=== PATIENT | female | born 1965 | race Caucasian/White ===

== ENCOUNTER → 2016-06-10 | Outpatient (CLI) | payer OTHER ==
[~2016-06-10] MED LIST: ADVIL200 MG PO; ALDACTONE25 MG PO; CIPRO500 MG PO; CLEOCIN HCL300 MG PO; COLACE100 MG PO; COMPAZINE10 MG; COMPAZINE10 MG PO; DECADRON4 MG PO; DILAUDID 2MG(HYD2 MG PO; FLORASTOR250 MG PO; HALAVEN1 MG/2 ML; HALAVEN1 MG/2 ML IV; IBRANCE125 MG PO; JENTADUETO 2.51 EAC1 PO; KCL - MICRO-K10 MEQ PO; LEVEMIR100 UNIT/1 SUB-Q; MACRODANTIN *IA50 MG PO; MILK OF MA400 MG/5 M PO; MIRALAX17 GM PO; MS CONTIN30 MG PO; NEURONTIN600 MG PO; PERCOCET 5-3251 EACH PO; PRILOSEC20 MG PO; PROAIR HFA8.5 GM INH; SENOKOT8.6 MG PO; TYLENOL325 MG PO; VALIUM10 MG PO; VALIUM5 MG PO; XELODA500 MG PO; XGEVA120 MG/1.7 SUB-Q; ZOFRAN8 MG PO; ZOLOFT50 MG PO
== END | disposition disaster alternative care site (69) ==
LOC: GKIC 11:23
DX: C50.911 Malignant neoplasm of unspecified site of right female breast (principal); C79.51 Secondary malignant neoplasm of bone; R91.8 Other nonspecific abnormal finding of lung field; L03.115 Cellulitis of right lower limb; K59.00 Constipation, unspecified
CPT/HCPCS: A9552

== ENCOUNTER → 2016-07-22 | Outpatient (CLI) | payer OTHER | END | disposition disaster alternative care site (69) | LOC: GRAD 10:23 | DX: R68.84 Jaw pain (principal); C50.911 Malignant neoplasm of unspecified site of right female breast; C79.51 Secondary malignant neoplasm of bone; N91.2 Amenorrhea, unspecified; L03.115 Cellulitis of right lower limb; K59.00 Constipation, unspecified; R22.0 Localized swelling, mass and lump, head ==

== ENCOUNTER 2016-07-23 10:00 | Inpatient (IN) | payer OTHER ==
[~2016-07-23] VITALS: Ht 170.2 cm; Wt 87.9 kg
--- NOTE | ~2016-07-23 | HP ---
PATIENT'S NAME: RITIKA MELENDEZ [facility] AGE: 50 Y [address] ROOM: [place] [address] LOCATION: [facility] [place] ADMIT DATE: 07/23/2016 History & Physical DISCHARGE DATE: FAMILY PHYSICIAN: PHYSICIAN, NO ATTENDING PHYSICIAN: Elizabeth PLEITEZ DATE OF SERVICE: CHIEF COMPLAINT: Parotiditis. HISTORY OF PRESENT ILLNESS: The patient is a 50-year-old female with past medical history of breast cancer, status post radiation, chemo, and mastectomy with metastatic to lung and bone, who presents here from Oncology office with parotiditis. The patient reports that for the past few days she has been noticing her jaw to swell. She reports of chills, but denies fever. She also reports of difficulty swallowing due to pain. She also reports of swelling in her jaw and warmth of her overlying skin around her jaw. The patient also reports of a few day history of lower extremity instability and has had a fall 2 days ago. The patient was seen by her oncologist today and was found to have swollen parotid gland and was admitted here for IV antibiotics and ENT consult. The patient also was found to have low neutrophilic count today. Her ANC is 352 on labs that were drawn today. The patient denies headache, vision change, chest pain, abdominal pain, vomiting, diarrhea, new skin lesions, or bleeding. PAST MEDICAL HISTORY: 1. Breast cancer. 2. 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 Has had radiation of her left choroid eye on 12/26/2015. 3. Hypertension. 4. Diabetes mellitus type 2. 5. Tobacco use. PAST SURGICAL HISTORY: , cholecystectomy, and bilateral mastectomy. FAMILY HISTORY: Dad has a history of esophageal cancer. Sister has a history of breast cancer. SOCIAL HISTORY: The patient has a history of smoking, smoked almost for 30 years. The patient currently is still a smoker. She denies drinking. PATIENT'S NAME: RITIKA MELENDEZ [facility] AGE: 50 Y [address] ROOM: [place] [address] LOCATION: [facility] ADMIT DATE: 07/23/2016 History & Physical DISCHARGE DATE: FAMILY PHYSICIAN: PHYSICIAN, NO ATTENDING PHYSICIAN: Elizabeth PLEITEZ MEDICATIONS: See MAR. REVIEW OF SYSTEMS: All systems have been reviewed and are negative except for what is mentioned in the HPI. PHYSICAL EXAMINATION: VITAL SIGNS: Temperature 98.3, blood pressure 114/61, heart rate 82, and respiratory rate of 20. GENERAL APPEARANCE: The patient is lying comfortably in bed, in mild discomfort due to jaw pain. HEAD: Atraumatic, normocephalic. EYES: Extraocular muscle intact. NOSE: No nasal discharge. MOUTH: Dry oral mucosa. Unable to fully assess oral cavity as the patient has severe pain upon opening of mouth. However, [id number] swelling of mucosa around the parotid glands bilaterally, right greater than left. NECK: No lymph nodes noted. CHEST: Clear to auscultation bilaterally. ABDOMEN: Soft, nontender. Bowel sounds present. HEART: Regular rate and rhythm. No murmurs, rubs, or gallops. SKIN: Warm to touch, however, has decubitus ulcer stage 2 to 3 with eschar formation. MUSCULOSKELETAL: Range of motion intact. No obvious joint effusion. LOWER EXTREMITY: Trace edema. HOME HOSPICE AIDE: The patient is alert and oriented x3. Upper extremity strength 5/5. Lower extremity strength, left side 4/5 and right side 3 to 4/5. LABORATORY DATA: Lab drawn today at Oncology office, sodium of 125, potassium of 3.5, chloride of 88, BUN of 12, creatinine 0.8, and blood glucose of 296. White blood cell count of 1.6, hemoglobin of 6.6, platelet of 44, ANC of 352, and bands of 9. ASSESSMENT AND PLAN: 1. Suppurative parotiditis. The patient is a 50-year-old female with immunocompromised secondary to breast cancer with mets with neutropenia. On physical examination, the patient was noted to have bilateral parotiditis. No fluctuance was appreciated on examination. The patient was given vancomycin and ceftriaxone at Oncology office. We will continue vancomycin; however, we will change ceftriaxone to cefepime 2 mg IV t.i.d. We will also acquire blood culture. ENT will be consulted to further investigate the parotiditis. We will continue pain management. If the patient does not respond well with antibiotics, might benefit from PATIENT'S NAME: PAUL MELENDEZINE Magda [facility] AGE: 50 Y [address] ROOM: [place] [address] LOCATION: [facility] ADMIT DATE: 07/23/2016 History & Physical DISCHARGE DATE: FAMILY PHYSICIAN: PHYSICIAN, NO ATTENDING PHYSICIAN: Elizabeth PLEITEZ surgical evaluation. 2. Neutropenia. The patient has neutropenia secondary to chemo and bone mets. We will treat the patient as neutropenic fever. The patient's ANC level is 352. Neutropenic fever precautions. We will start the patient on cefepime and we will add vancomycin for the possible suppurative parotiditis. 3. Hyponatremia. The patient's sodium is 125. Apparently, last sodium was 135. Etiology secondary to SIADH versus low-salt intake due to poor oral intake secondary to parotiditis. We will acquire urine sodium, urine creatinine, urine osmol, and serum uric acid level. For now, we will hold off with IV fluid until these numbers are back. Also consulted Nephrology. Discussed case with Dr. Cortez. 4. Microcytic anemia. Etiology most likely secondary to mets to bone and chemo. Current hemoglobin 6.6. Type and screen and transfuse 2 units packed red blood cell. 5. Thrombocytopenia. Etiology secondary to bone marrow issues secondary to mets and chemo. No signs of bleeding currently. We will hold blood thinner medication. 6. Hypokalemia, 3.5. We will supplement. 7. Diabetes mellitus type 2. We will continue home regimen of insulin. 8. Breast cancer with mets to eye, bone, and lung. The patient is currently taking Xeloda. To continue Xeloda. This recommendation per oncologist. 9. Pancytopenia. 10. Fall. To acquire MRI brain with and without contrast to further investigate mets to brain. Apparently, the patient has had recent back imaging. To acquire PT and OT when the patient is stable. 11. Chronic pain secondary to mets. To continue home regimen of pain medication. I have personally reviewed the patient's medical record including but not limited to blood work. Total time spent with the patient is greater than 70 minutes, more than 50% of the time spent in direct patient care and patient consultation. Case was reviewed with the patient, nursing staff, Nephrology, and the patient's oncologist. The patient's questions were answered to the patient's satisfaction. The patient's code status on admission is full code. MD LOLY FULLER/susanl /[id number] D: [id number] T: [id number] HISTORY & PHYSICAL
--- NOTE | ~2016-07-23 | CON ---
PATIENT'S NAME: AL [facility] AGE: 50 Y [address] ROOM: [address] [place], [place] [address] LOCATION: [facility] [place] ADMIT DATE: 07/23/2016 Consultation DISCHARGE DATE: FAMILY PHYSICIAN: PHYSICIAN, FRANKLIN ATTENDING PHYSICIAN: Elizabeth PLEITEZ DATE OF CONSULTATION: 07/23/2016 [facility] Nephrology Consultation REASON FOR CONSULTATION: Hyponatremia. HISTORY OF PRESENT ILLNESS: This is a 50-year-old female patient with extensive history of metastatic breast cancer with vertebral, sternal, rib, pelvic, lung, and bone involvement with newly found lung mass in May 2016 with increase in size. The patient presented to Oncology office today and was found to have neutropenia and parotiditis. At that time, the patient's sodium was found to be 125. Baseline sodium appears to be 135 on the last office visit on 07/14/2016. At the time of exam, the patient is in moderate amount of distress secondary to pain. She does report poor oral intake over the last two weeks, nausea, and increased pain management due to progressive metastasis and pain as well as facial pain secondary to parotiditis. Due to the patient's hyponatremia today with a sodium of 125 from 135, one week ago, Dr. Samuel has been asked to consult and manage the patient's hyponatremia while she is hospitalized. PAST MEDICAL HISTORY: 1. As listed above including: Breast cancer with metastasis. 2. Renal calculi. 3. Back pain. 4. Pathologic fractures of the spine. 5. Hypertension. 6. Obesity. 7. Type 2 diabetes. 8. Edema. 9. Anxiety. PAST SURGICAL HISTORY: 1. sections x3. 2. Laparoscopic cholecystectomy. 3. Right breast biopsy. PATIENT'S NAME: BOONE [facility] AGE: 50 Y [address] ROOM: [address] [address] LOCATION: [facility] [place] ADMIT DATE: 07/23/2016 Consultation DISCHARGE DATE: FAMILY PHYSICIAN: PHYSICIAN, FRANKLIN ATTENDING PHYSICIAN: Elizabeth PLEITEZ 4. Right breast lumpectomy x2. 5. Port placement with port removal. 6. Vertebroplasty. 7. Bilateral mastectomy. FAMILY HISTORY: Reviewed and is noncontributory. There is no history of renal disease or dialysis. No electrolyte disorders. The patient's sister did have breast cancer. SOCIAL HISTORY: The patient does live in [place]. She does continue to smoke 3/4 pack of cigarettes per day and has done so for over 25 years. She denies any alcohol or illicit drug use. ALLERGIES: NONE TO MEDICATION. CURRENT HOME MEDICATIONS: Include: 1. MS Contin 30 mg q.12 hours and 60 mg q.12 hours. 2. Neurontin 1200 mg t.i.d. 3. Dilaudid 2 mg p.o. t.i.d. p.r.n. pain. 4. Potassium chloride 10 mEq twice a day. 5. Spironolactone 12.5 mg twice a day p.r.n. fluid retention. 6. Zofran 8 mg p.o. q.8 hours p.r.n. nausea. 7. Tylenol 325 mg p.o. q.6 hours p.r.n. pain. 8. Advil 800 mg p.o. b.i.d. 9. Valium 10 mg p.o. q. day p.r.n. anxiety. 10. Jentadueto 2.5 mg/500 mg 1 tablet daily. 11. Xgeva 120 mg/1.7 mL 1 dose subcutaneously. 12. Ibrance 125 mg p.o. REVIEW OF SYSTEMS: All other systems are negative except as listed above in the HPI. PHYSICAL EXAMINATION: VITAL SIGNS: Blood pressure is 129/72, pulse is 94, respirations 18, and temperature is 97.8. Weight is 81.2 kg. GENERAL: On exam, this is a somnolent white female, who appears older than her stated age. She is in a moderate amount of distress secondary to pain. HEENT. Her head is normocephalic and atraumatic. Alopecia noted. Eyes; EOMs are intact. Nose is midline. Mouth; no gingival bleeding. Throat is without lymphadenopathy or carotid bruits. No JVD noted. RESPIRATORY: Lung sounds are clear to auscultation anteriorly and PATIENT'S NAME: RITIKA MELENDEZ [facility] AGE: 50 Y [address] ROOM: [place] [address] LOCATION: [facility] [place] ADMIT DATE: 07/23/2016 Consultation DISCHARGE DATE: FAMILY PHYSICIAN: PHYSICIAN, NO ATTENDING PHYSICIAN: Elizabeth PLEITEZ. The patient is on room air. CARDIOVASCULAR: Regular rate and rhythm with no appreciable murmurs, rubs, or thrills. ABDOMEN: Obese. Bowel sounds positive. EXTREMITIES: Show trace lower extremity edema bilaterally. LABORATORY DATA AND IMAGING STUDIES: LDH is 453. Hemoglobin A1c is 7.0. INR is 1.16. Uric acid is 7.7, haptoglobin is 117, D-dimer is 2.92, and serum osmolality is 275. Labs obtained from [facility] showed a sodium of 125, potassium 3.5, chloride 88, CO2 of 29, calcium 8.8, albumin is 3.5, AST 28, ALT 21, alkaline phosphatase is 161, glucose is 296, creatinine is 0.8, and BUN is 12. WBCs 1.6, hemoglobin 6.6, hematocrit is 18.2, and platelets are 44,000. A Panorex of the mandible shows no osteolytic or osteoblastic bone lesion identified at the mandible or on panoramic view. There were possible dental caries at the upper right 1st and 2nd molars. Dental evaluation was recommended. MRI of the brain and head with and without contrast is currently pending. ASSESSMENT AND PLAN: 1. Hyponatremia. This is likely multifactorial. The patient has had decreased oral intake as well as nausea and increased pain management over the past few weeks. Dr. Samuel was contacted at the time of the exam, and was notified of the patient's current status. We will obtain a urinalysis for urine osmolality, urine potassium, urine sodium, as well as urine creatinine. The patient's hyponatremia is likely secondary to syndrome of inappropriate secretion of antidiuretic hormone (SIADH) as mentioned above. Dr. Samuel did recommend Samsca versus 3% saline be utilized to help correct the patient's hyponatremia. Further recommendations will be forthcoming with the urinalysis. 2. Neutropenia. Per Dr. Maier. 3. Metastatic breast cancer. Per Dr. Maier. 4. Parotiditis. ENT has been consulted. This patient has been seen and assessed by Dr. Samuel. Her care is being conducted in consultation with Dr. Samuel as well as Karina Alas, BARRY, FOLDER HAND. We will plan further recommendations as they are forthcoming. KARINA ALAS DNP, FOLDER HAND FOR Melia SAMUEL MD PATIENT'S NAME: RITIKA MELENDEZ [facility] AGE: 50 Y [address] ROOM: [place] [address] LOCATION: [facility] [place] ADMIT DATE: 07/23/2016 Consultation DISCHARGE DATE: FAMILY PHYSICIAN: FRANKLIN JO ATTENDING PHYSICIAN: Elizabeth PLEITEZ/delicia /[id number] d: 07/23/16 2336 t: 08/06/16 1001, CONSULTATION REPORT
--- NOTE | ~2016-07-23 | CON ---
PATIENT'S NAME: AL [facility] AGE: 50 Y [address] ROOM: [place] [address] [place] [facility] [place] ADMIT DATE: 07/23/2016 Consultation DISCHARGE DATE: FAMILY PHYSICIAN: PHYSICIAN, FRANKLIN ATTENDING PHYSICIAN: Elizabeth MITCHELL CHIEF COMPLAINT: Bilateral parotitis. HISTORY: The patient is a 50-year-old female with a history of breast cancer. The patient was admitted for bilateral parotitis. Symptoms started one day ago with increased swelling right side than left. The patient has had poor oral intake. She was admitted by Dr. Mitchell and started on IV vancomycin as well as pain control. PAST MEDICAL HISTORY: All documented and reviewed in the chart. SOCIAL HISTORY: All documented and reviewed in the chart. FAMILY HISTORY: All documented and reviewed in the chart. REVIEW OF SYSTEMS: All documented and reviewed in the chart. PHYSICAL EXAMINATION: GENERAL: Ill-appearing 50-year-old female. HEENT: Head is otherwise atraumatic and normocephalic. She shows evidence of bilateral parotitis. Intraoral exam suggest possible yeast infection along the buccal mucosa. The tongue is clear. Floor of mouth is clear. NECK: Without adenopathy or thyromegaly or evidence of submandibular gland involvement. IMPRESSION: Bilateral parotitis. PLAN: For continued IV antibiotic therapy. Increase fluids. Pain control. I would hold off on sialogogues for 48 hours until the glans actually secrete saliva. [facility] AGE: 50 Y [address] ROOM: [place] [id number] [place]: [facility] [place] ADMIT DATE: 07/23/2016 Consultation DISCHARGE DATE: FAMILY PHYSICIAN: PHYSICIAN, FRANKLIN ATTENDING PHYSICIAN: Elizabeth MITCHELL MD DGO/delicia /[id number] d: 07/23/162216 t: 07/26/16 1423, CONSULTATION REPORT
--- NOTE | ~2016-07-23 | DS ---
PATIENT'S NAME: RITIKA MELENDEZ [facility] AGE: 50 Y [address] ROOM: [place] [address] [place] [facility] [place] DATE: 07/23/2016 Discharge Summary DISCHARGE DATE: 07/29/2016 FAMILY PHYSICIAN: PHYSICIAN, FRANKLIN ATTENDING PHYSICIAN: Stephen Johnson DISCHARGING PHYSICIAN: Brandi Shrestha MD. CONSULTING PHYSICIAN: 1. Palliative Care, Ayaka Merritt NP. 2. Alisa Rao APRN for wound ostomy care nurse. ONCOLOGISTS: 1. Surjit Luke MD. 2. Cherelle Faith MD. DISCHARGE DIAGNOSES: 1. Sepsis. 2. Acute bilateral parotitis. 3. Pancytopenia. 4. Electrolyte imbalance. 5. Chronic pain syndrome. 6. Metastatic breast cancer. 7. Acute diarrhea. 8. Leukocytosis. DISCHARGE MEDICATIONS: 1. Neurontin 1200 mg p.o. t.i.d. 2. Hydromorphone 2 mg 1-2 tabs p.o. q.4-6 hours p.r.n. pain. 3. Ibuprofen 800 mg p.o. b.i.d. 4. Morphine sulfate 90 mg p.o. q.12 hours p.r.n. pain. 5. Prilosec 20 mg p.o. daily. 6. Potassium chloride 10 mEq p.o. twice daily. 7. APAP 325 mg p.o. q.6 hours p.r.n. pain. 8. Spironolactone 25 mg p.o. twice daily. 9. Zofran 8 mg p.o. q.6 hours p.r.n. nausea. 10. Xgeva 1 dose subcutaneously q.4 weeks, I believe this was last administered on 07/14/2016. 11. Albuterol 2 puffs INH q.4 hours p.r.n. shortness of breath. 12. Oxycodone/APAP 5/325 one tablet p.o. every 6 hours p.r.n. pain. 13. Eribulin mesylate 2.7 mg IV q.21 day cycle per Oncology. 14. Milk of magnesia 30 mL p.o. daily p.r.n. constipation. 15. Florastor 250 mg p.o. twice daily x10 days, OTC. 16. Colace 100 mg p.o. b.i.d., OTC. 17. MiraLAX 17 g p.o. daily p.r.n., OTC. PATIENT'S NAME: RITIKA MELENDEZ [facility] AGE: 50 Y [address] ROOM: [place] [address] [place] [facility] [place] DATE: 07/23/2016 Discharge Summary DISCHARGE DATE: 07/29/2016 FAMILY PHYSICIAN: PHYSICIAN, NO ATTENDING PHYSICIAN: Stephen Johnson 18. Clindamycin 600 mg p.o. t.i.d. x7 days. PERTINENT RADIOLOGIC DATA: 1. Panorex x-ray on 07/22/2016 showed no osteolytic or osteoblastic lesion identified at the mandible on Panorex view. Possible dental caries in the upper right 1st and 2nd molars. 2. MRI of the brain with and without contrast on 07/23/2016 shows no acute intracranial abnormality. 3. Chest x-ray on 07/25/2016 showed vascular congestion with diffuse interstitial prominence which could reflect interstitial edema or infiltrate, there is a left suprahilar mass, neoplastic bone involvement including expansile sclerotic rib lesion at the right fourth rib. 4. CT of the soft tissue of the neck on 07/29/2016 showed bilateral parotiditis. There was bilateral parotid gland swelling with surrounding induration of fat. No abscess. No evidence of parotid duct stone. PERTINENT LABORATORY DATA: The patient was noted to be pancytopenic upon admission. CBC showed white count 2100, hemoglobin 7.9, hematocrit 22.5, and platelets 42,000. This did continue to recover and on July 26, white count had bumped to 6.7, hemoglobin 8.3, platelets are 46K. The white count continued to escalate on July 27, 2016, it was 12.2; on July 28, was 16.1; on the day of discharge, [place] count [place] [address]. Hemoglobin was 8.4, hematocrit 24.7, and platelets had rebounded to 71K. Differential on the day of discharge showed 31 segs, 30 bands, 8 lymphs, 18 monocytes, and 2 nucleated rbc's. HOSPITAL COURSE: Please refer to the admitting H and P dictated by Dr. Mitchell for more detailed outline of the patient's presentation. The patient was admitted on 07/23/2016 and Oncology was consulted. Her home medications were continued, and the patient was placed on IV clindamycin. Dr. Luke seen the patient in consultation, and an MRI of the brain and head was obtained. The patient was ultimately transfused with 3 total packed RBCs. The patient was ultimately switched to cefixime and vancomycin for antibiotic coverage. The patient did have hyponatremia when admitted with sodium of 134, this drifted up to 136 on the day of discharge. Urine sodium was found to be less than 5 mmol/L, potassium to be 6.0 mmol/L, and urine creatinine 107.0 mg/dL. Spironolactone at that point was held. Wound Care nurse has seen the patient concerning her right sacral ulcer. Aloe Wheelwright was used for management along with Malorie position. The patient did have some electrolyte imbalance, and the patient did have low phosphorus levels of 1.1, this was replaced. Supportive care was continued. It was felt her low sodium was secondary to SIADH. Palliative Care continued to follow along also. The patient did have acute diarrhea from presentation, this was negative for C. Blood cultures were obtained and were negative. The patient continued to have bilateral large tender parotid glands, we continued to be aggressive with IV hydration and/or PATIENT'S NAME: RITIKA MELENDEZ [facility] AGE: 50 Y [address] ROOM: [place] [address] [place] [facility] [place] DATE: 07/23/2016 Discharge Summary DISCHARGE DATE: 07/29/2016 FAMILY PHYSICIAN: PHYSICIAN, FRANKLIN ATTENDING PHYSICIAN: Stephen Johnson IV antibiotics. She was found to be hypokalemic, the lowest being 3.0 for potassium level, this also was replaced, and at the time of discharge, potassium was 4.2. The patient continued to use her home medications and also p.r.n. hydromorphone and Percocet to help manage with her pain. The patient has otherwise improved clinically and her white count continued to climb. The patient was motivated for discharge home and ultimately a CT scan was obtained to rule out the possibility of underlying abscess given the increase in the white count. CT was found to be negative and ultimately the patient was felt stable enough for discharge to her own home. We will continue her on oral clindamycin to continue treatment for her parotitis and she is advised to follow up with Dr. Faith in 1 week to follow up on her elevated white count. The patient is discharged to her own home on 07/29/2016. She is to follow up with Dr. Luke or Dr. Faith in 1 week with a CBC to monitor her count. The patient is being sent home with oral clindamycin 600 mg p.o. t.i.d. for 7 days and was advised to take Florastor for GI prophylaxis. The patient was also sent home on MiraLAX, Colace, and milk of magnesia for help with her constipation which had been chronic before her admission and resurfaced again before discharge. The patient voiced understanding of this plan. This discharge process took greater than 30 minutes and included coordinating followup appointments with the Oncology office and visiting with our colleagues for these arrangements and reviewing medications and followup plans with the patient and reviewing a hospital course. Thank you for allowing us to help care for this patient. KENNY SHAIKH PA-C FOR MD SCOTTY HAIRSTONM/modl /[id number] CC: Cherelle Faith MD d: 07/30/16 0026 t: 08/03/16 1611, DISCHARGE SUMMARY
--- NOTE | ~2016-07-23 | CON ---
PATIENT'S NAME: RITIKA MELENDEZ [facility] AGE: 50 Y [address] ROOM: [place] [address] [place] [facility] [place]: 07/23/2016 Consultation DISCHARGE DATE: FAMILY PHYSICIAN: PHYSICIAN, NO ATTENDING PHYSICIAN: Elizabeth PLEITEZ DATE OF CONSULTATION: 07/24/2016 REFERRING PHYSICIAN: Surjit Luke MD REASON FOR CONSULTATION: Right sacral pressure ulcer with radiation scarring. HISTORY OF PRESENT ILLNESS: This is a 50-year-old female patient who was admitted to [facility] with neutropenic fever. She has a significant history of metastatic breast cancer with bone metastasis. I last saw her at the [facility]patient [facility] on July 17. We have been instructing her to apply [employer] to the site and implement pressure redistribution measures. The patient was admitted from Oncology with parotitis. She reports fevers, chills, and sweats. She denies chest pain. She is very fatigued, pale, and weak. She at first did not want visualization of her buttocks, but did turn over slightly, but had extreme pain so buttocks examination is limited. Really unable to obtain much history as the patient is in pain and appears acutely ill. When I saw her down in the Outpatient Wound Care, she told me that she has had radiation to her spine about 2 years ago and the sacral pressure ulcer started shortly after radiation therapy completed. The patient often sleeps in a recliner at times due to back pain. The patient reports she is nauseated. PAST MEDICAL HISTORY: 1. Breast cancer with metastasis to spine. 2. Renal calculi. 3. Back pain. 4. Pathologic fracture of the spine. 5. Essential hypertension. 6. Obesity. 7. Type 2 diabetes mellitus. 8. Lower leg edema. 9. Anxiety. PAST SURGICAL HISTORY: 1. section x3. 2. Cholecystectomy. 3. Right breast biopsy. PATIENT'S NAME: RITIKA MELENDEZ [facility] AGE: 50 Y [address] ROOM: [place] [address] [place] [facility] [place]: 07/23/2016 Consultation DISCHARGE DATE: FAMILY PHYSICIAN: PHYSICIAN, FRANKLIN ATTENDING PHYSICIAN: Elizabeth PLEITEZ 4. Right breast lumpectomy x2. 5. Port placement with port removal. 6. Vertebroplasty. 7. Bilateral mastectomy. FAMILY HISTORY: Her father had esophageal cancer. SOCIAL HISTORY: She lives with her in [place]. She smokes at least half a pack per day. ALLERGIES: NO KNOWN DRUG ALLERGIES. CURRENT MEDICATIONS: Please refer to the medication administration record. REVIEW OF SYSTEMS: Pertinent positives addressed in the HPI. Limited due to patient's acute illness. PHYSICAL EXAMINATION: VITAL SIGNS: Temperature 98.1, pulse 77, respirations 16, blood pressure 117/64, and pulse oximetry 97% on room air. Height 5 feet 7 inches and weight 81.2 kg. GENERAL: The patient is very pale, diaphoretic, and fatigued. Does open her eyes, but minimal interaction and reports pain with movement. Almost appears disorientated and asking who I am even though she has seen me before. EXTREMITIES: Deferred. HEENT: Minimal hair growth noted to the occipital area. Oral mucosa dry. LUNGS: Respirations shallow. SKIN: Visibly diaphoretic. Limited visualization due to pain with turning & patient not wanting the light on due to eye sensitivity. From what I can tell, right sacral ulcer appears stable since the last time I saw it. The wound is a mixture of moist pink tissue and yellow slough. Skin rolling and blanchable redness to periwound. Was unable to measure as patient needed to turn back to her back. Groin folds intact. LABORATORY DATA: White blood cell count 2.1, hemoglobin 7.9, hematocrit 22.5, and platelets 42,000. Sodium 143, potassium 3.0, chloride 97, bicarbonate 26, BUN 9, creatinine 0.6, glucose 201, albumin 2.3, and phosphorus 1.1. Cortisol 53.8. ASSESSMENT AND PLAN: PATIENT'S NAME: RITIKA MELENDEZ [facility] AGE: 50 Y [address] ROOM: [place] [address] [place] [facility] [place]: 07/23/2016 Consultation DISCHARGE DATE: FAMILY PHYSICIAN: PHYSICIAN, NO ATTENDING PHYSICIAN: Elizabeth PLEITEZ Again, this is a 50-year-old female patient who was admitted to [facility] with neutropenic fever and parotitis. I have been following her in Wound Care for a right sacral stage III pressure ulcer with radiation scarring. 1. Right sacral stage III full-thickness pressure ulcer with radiation scarring present on admission to [facility]. The patient has had this site for over 2 years now. Limited examination due to acuity of illness. We will initiate pressure redistributions and instruct nursing to turn in bed q.2 hours. Dietary consult was ordered. We will continue with [employer] to the site q.i.d. and p.r.n. stooling. We will continue to monitor and will need to reassess when patient is feeling better and measure the site. No induration or fluctuance noted. Heels to be afloated on pillows all times to prevent breakdown. I educated the patient's on the importance of protein intake, but he reports patient is hardly eating. 2. Parotitis. The patient is on antibiotic therapy. 3. Neutropenia and immunosuppression. Neutropenic precautions in place. Discussed proper hand hygiene. Oncology on board. I wish the patient good luck, and I would like to thank Dr. Luke for this consult. JOHN HIGGINS APRN FOR MD JOSE SILVA/delicia /[id number] d: 07/24/16 1210 t: 08/07/16 1042, CONSULTATION REPORT
--- NOTE | ~2016-07-23 | CON ---
[facility] 50 Y [address] ROOM: [place] [address] [place] [facility] [place]: 07/23/2016 Consultation DISCHARGE DATE: FAMILY PHYSICIAN: PHYSICIAN, NO ATTENDING PHYSICIAN: Elizabeth PLEITEZ REFERRING PHYSICIAN: Brandi Shrestha MD LOCATION: [place] [address]. REASON FOR CONSULTATION: This is a palliative care referral for goals of care of the patient and family support. HISTORY OF PRESENT ILLNESS: This 50-year-old frail female was admitted on 07/23/2016 with parotiditis. She has a past medical history of breast cancer status post radiation and chemo and mastectomy. Breast cancer is metastatic to lung and bone. She was admitted from the oncology office with chills, difficulty swallowing, pain in her jaw and cheek. The patient had been declining and falling at home. The patient complains of pain in right jaw and cheek and rates it 10/10, but does arouse easily, is able to ambulate to the bathroom with her walker with assistance. No nausea or vomiting. No hungry or early satiety. Getting weaker and weaker at home. PAST MEDICAL HISTORY: Breast cancer stage IV with metastasis to bone, lung, and choroid of left eye, post radiation to left eye on 12/26/2015, hypertension, diabetes mellitus type 2, and tobaccoism. PAST SURGICAL HISTORY: , cholecystectomy, bilateral mastectomy. FAMILY HISTORY: Father has a history of esophageal cancer. Sister has a history of breast cancer. SOCIAL HISTORY: , lives in [place], had been working for [employer] in [place] along with her , but lately had been getting weaker and was working from home. History of smoking for the past 30 years. Continues to smoke. No drinking or illicit drug use. CURRENT MEDICATIONS: 1. Levofloxacin 750 mg daily. 2. Ibuprofen 800 mg b.i.d. PAT[facility] AGE: 50 Y [address] ROOM: [address] [address] [place] [facility] [place]: 07/23/2016 Consultation DISCHARGE DATE: FAMILY PHYSICIAN: PHYSICIAN, FRANKLIN ATTENDING PHYSICIAN: Elizabeth PLEITEZ 3. Ondansetron 8 mg every 6 hours p.r.n. nausea. 4. Loperamide or Imodium 2 mg p.r.n. diarrhea. 5. Metformin 500 mg daily. 6. Alogliptin 12.5 mg p.o. in a.m. 7. Protonix 40 mg. 8. Fentanyl 25-50 mcg every hour p.r.n. pain. 9. Potassium chloride 10 mEq b.i.d. 10. Nicotine patch 21 mg daily transdermally. 11. Nystatin 5000 units q.i.d. 12. Gabapentin 1200 mg t.i.d. 13. Hydromorphone 2 mg t.i.d. 14. Albuterol 2 puffs every 4 hours p.r.n. inhalation. 15. Hydromorphone 2 mg IV every hour. 16. Oxycodone 1 tab every 6 hours p.r.n. 17. Benadryl 50 mg pre-blood transfusion. 18. [place] chemotherapy, was due for chemotherapy, but did not get it due to decreased blood count. ALLERGIES: TO TEGADERM. NO MED ALLERGIES. REVIEW OF SYSTEMS: A complete review of systems was done and is negative except as mentioned in HPI and listed below. GI: Had been having some nausea. No vomiting. Decreased appetite. Several frequent loose stools. SKIN: Does have a stage III decubitus ulcer on sacrum area, status post radiation. Does complain of pain and tenderness, especially in sitting position. PSYCH: No history of depression. Positive for fatigue and loss of energy. Some confusion with pain medications. PHYSICAL EXAMINATION: GENERAL: This is a 50-year-old, female, well-developed, in some pain distress. VITAL SIGNS: Temp 98.4, pulse 61, respirations 20, BP 137/67, O2 saturation is 98%. HEAD: Normocephalic and atraumatic. Redness noted and slight swelling noted over parotid glands bilaterally greater on right than left. MOUTH: Jewett and dry. LYMPH: No cervical adenopathy or thyromegaly. RESPIRATORY: Clear to auscultation bilaterally. Breath sounds even and regular. CARDIAC: S1, S2 without murmurs or bruits. EXTREMITIES: 2+ pitting edema on lower extremities. PATIENT'S NAME: AL RITIKA Magda [facility] AGE: 50 Y [address] ROOM: [id number] [place], [place] [address] [place] [facility] [place]: 07/23/2016 Consultation DISCHARGE DATE: FAMILY PHYSICIAN: PHYSICIAN, NO ATTENDING PHYSICIAN: Elizabeth PLEITEZ ABDOMEN: Soft, nontender. Positive bowel tones. No hepatosplenomegaly. NEURO: Grossly intact, drowsy but does arouse, answers questions appropriately, but falls asleep easily. MUSCULOSKELETAL: Appropriate range of motion. Walks with walker to the bathroom. SKIN: Stage III decubitus ulcer noted on sacrum, some eschar with erythema noted around it. Right cheek, slight erythema noted with swelling in parotid areas. EXTREMITIES: No cyanosis or deformities. PALLIATIVE PERFORMANCE SCALE: 40% mainly in bed, unable to do most activity, total care, reduced intake, conscious level is drowsy with some confusion. IMPRESSION: Parotid pain, sacrum pain, dysphagia, lack of appetite, anorexia, and diarrhea. PLAN: 1. Met with patient and , discussed chronic condition, metastatic breast cancer with increased pain and recent parotiditis, and pain out of control. The patient and have a fairly good understanding of overall condition. repeated back results of PET scan, disease worsening, increased lesions on last PET scan. They did not know the results of the MRI and was waiting for doctor to tell them about results of the MRI scan. CODE STATUS AND ADVANCED DIRECTIVE: The patient is currently a full code. They have no advanced directive. Did give a copy of our of Advanced directive to . He will try to talk with more when is more clear and not so drowsy and has pain more controlled. Discussed with about disadvantages of coding patient with advanced cancer. RECOMMENDATIONS: Bone pain, the patient had been on gabapentin 1200 mg t.i.d., ibuprofen 800 mg b.i.d., and MS Contin 90 mg b.i.d. The patient had been taking Dilaudid 2 mg IV and fentanyl 25 mcg one dose and 50 mcg x3 doses, but MS Contin was not restarted. Recommendation is to restart MS Contin 90 mg b.i.d. due to patient was able to swallow easily her other medications. Nausea, Zofran was ordered, had one dose and was effective. Diarrhea, Imodium was ordered. We will reassess pain status and code status. Total time was 65 minutes with 55 minutes for counseling and coordination of PATIENT'S NAME: RITIKA MELENDEZ [facility] AGE: 50 Y [address] ROOM: [place] [address] [place] [facility] [place]: 07/23/2016 Consultation DISCHARGE DATE: FAMILY PHYSICIAN: PHYSICIAN, FRANKLIN ATTENDING PHYSICIAN: Elizabeth PLEITEZ. Thank you for allowing me to assist this patient. JANN KERR NP FOR MD BEV MITCHELL/delicia /[id number] d: 07/25/16 1625 t: 08/08/16 0828, CONSULTATION REPORT
[~2016-07-23 10:00] MED LIST changes: -ADVIL200 MG PO; -CIPRO500 MG PO; -CLEOCIN HCL300 MG PO; -COLACE100 MG PO; -COMPAZINE10 MG PO; -DECADRON4 MG PO; -FLORASTOR250 MG PO; -HALAVEN1 MG/2 ML IV; -IBRANCE125 MG PO; -JENTADUETO 2.51 EAC1 PO; -LEVEMIR100 UNIT/1 SUB-Q; -MACRODANTIN *IA50 MG PO; -MILK OF MA400 MG/5 M PO; -MIRALAX17 GM PO; -PERCOCET 5-3251 EACH PO; -PRILOSEC20 MG PO; -PROAIR HFA8.5 GM INH; -SENOKOT8.6 MG PO; -VALIUM10 MG PO; -VALIUM5 MG PO; -XELODA500 MG PO; -XGEVA120 MG/1.7 SUB-Q; -ZOLOFT50 MG PO
--- NOTE | 2016-07-23 12:43 | NUR ---
Pt is 50 y/o female admit for neutropenic fever for hospitalist. Came from office. Allergy to Tegaderm. Red and yellow bracelets on. Hx breast cancer-2010, now has mets to lung and bone,bilat mastectomy,cough,htn,edema to lower legs,DM,anxiety,hx compression fx lumbar,hx cellulitis. Pt weak and drowsy. Family at bedside. In neutropenic precautions.
[2016-07-23 15:41] LABS: INR - (THERAPEUTIC) 1.16 (0.92-1.07); PROTIME 12.2 SECONDS (9.8-11.4)
--- NOTE | 2016-07-23 18:02 | NUR ---
Patient is alert and oriented, but confused at times. 2 person assist with gait belt, stand and pivot. FERMIN accucheck, needs insulin for 1700 BS of 301. Is in MRI currently. Needs UA, missed the hat with this last void, [address] now. Last dose of Dilaudid 2mg IV given at 1624. Will need 2 units of PRBCs, lab called right before she left for MRI saying it was ready. ENT saw, nephrology consulted and saw. Edema bilaterally to the lower extremities. Pressure sore to sacrum, aloe vesta applied, needs to be a Q2 turn. Family in room.
[2016-07-23] MEDS ORDERED: PRILOSEC20 MG PO (19:33)
[2016-07-23] MEDS ORDERED: XELODA500 MG PO (19:35)
[2016-07-23 23:04] LABS: BLOOD URINE 10 /UL (NEGATIVE); COLOR URINE AMBER (YELLOW); GLUCOSE URINE 100 mg/dL (NEGATIVE); KETONE URINE 5 mg/dL (NEGATIVE); LEUKOCYTES URINE 25 /UL (NEGATIVE); NITRITE URINE NEGATIVE (NEGATIVE); PROTEIN URINE 30 mg/dL (NEGATIVE); SPEC GRAVITY URINE 1.015 (1.003-1.035); TURBIDITY URINE CLEAR (CLEAR); UROBILINOGEN URINE 8 mg/dL (NORMAL)
[2016-07-23 23:40] LABS: BACTERIA URINE RARE (NEGATIVE); RBC URINE RARE #/HPF (NEGATIVE)
--- NOTE | 2016-07-24 04:25 | NUR ---
Significant Event: Pt alert and oriented x3, but gets very confused and forgetful on and off. IV left AC and left forarm. IV antibiotics. 2 Units of PRBC infused, premedicated prior to blood with benedryl and tylenol. VSS. RA. denies SOB. Pt nauseated on and off. order for zofran obtained. Diladid 2 MG can be given for pain control helped at times, MD notified. order for fentynal obtained given x1 and diladid given x4. bed alarm on at all times. ACHS accuchecks. pt is very weak with ambulation, 2 assist with walker and gait belt. UA obtained results called to Dr. Cortez. limb alert on right arm. daughter at bedside through out the night Follow up:
[2016-07-24 05:49] LABS: HEMATOCRIT 22.5 % (33.0-46.0); MCV 97.8 fl (83.0-98.0); MPV 11.1 fl (9.4-12.4); WBC 2.1 K/uL (4.0-11.0)
[2016-07-24 05:51] LABS: HEMOGLOBIN 7.9 g/dL (10.0-15.0); MCH 34.3 pg (27.0-34.0); MCHC 35.1 gm/dL (32.0-36.5); PLATELET COUNT 42 K/uL (150-450)
[2016-07-24 06:08] LABS: ALBUMIN 2.3 gm/dL (3.5-5.0); ALK PHOS 119 IU/L (33-138); ALT 11 IU/L (12-78); AST 19 IU/L (10-40); BLOOD UREA NITROGEN 9 mg/dL (6-24); CALCIUM 8.2 mg/dL (8.5-10.5); CHLORIDE 97 mMol/L (96-110); CO2 26 mMol/L (22-32); CREATININE 0.6 mg/dL (0.5-1.1); ESTIMATED GFR (MDRD EQUATION) > 60; SODIUM 134 mMol/L (135-145); TOTAL BILIRUBIN 2.4 mg/dL (0.0-1.5); TOTAL PROTEIN 5.6 g/dL (6.0-8.4)
[2016-07-24 06:33] LABS: ABSOLUTE NEUTROPHIL CT (ANC) 0.7 K/uL (1.8-7.8); BANDED NEUTROPHIL # 0.5 K/uL (0.0-0.1); BANDED NEUTROPHILS % 23 %; LYMPHOCYTE # 0.9 K/uL (0.8-4.0); LYMPHOCYTE % 42 %; MONOCYTE # 0.1 K/uL (0.0-1.0); SEGMENTED NEUTROPHIL # 0.2 K/uL (1.8-7.8); SEGMENTED NEUTROPHIL % 8 %
[2016-07-24] MEDS ORDERED: HALAVEN1 MG/2 ML IV (12:26)
--- NOTE | 2016-07-24 16:45 | NUR ---
ATTEMPTED TO SPEAK TO PATIENT BUT SHE IS SLEEPING AT THIS TIME. WILL TRY TO TALK TO HER AT ANOTHER TIME. I SPOKE TO BRENDA HER PRIMARY NURSE AND SHE REPORTS THAT PATIENT HAS JUST NOW GOT COMFORTABLE AND IS ABLE TO SLEEP.
--- NOTE | 2016-07-24 17:22 | NUR ---
Patient is alert but confused. Lethargic. Up to commode and bathroom multiple times today with diarrhea and urgency of voiding. C.dif was negative. New midline in L) upper currently has potassium infusing. Has received multiple doses of pain medication. Dilaudid PO and IV with last IV at 0947, Fentanyl IV last at 1415, MS contin was given at 1542. She has been resting since the MS contin was given. Jaw is swollen and red bilaterally. Not taking in very much orally. Order received to start NS at 75ml/hr. Will continue to monitor for pain.
[2016-07-25 04:39] LABS: HEMATOCRIT 19.8 % (33.0-46.0); MCV 97.1 fl (83.0-98.0); MPV 10.8 fl (9.4-12.4); RBC 2.04 M/uL (3.50-5.50); RDW-CV 16.1 % (11.9-14.6); WBC 3.8 K/uL (4.0-11.0)
[2016-07-25 04:42] LABS: HEMOGLOBIN 7.1 g/dL (10.0-15.0); MCH 34.8 pg (27.0-34.0); MCHC 35.9 gm/dL (32.0-36.5); PLATELET COUNT 46 K/uL (150-450)
--- NOTE | 2016-07-25 04:44 | NUR ---
Significant Event: Pt drowsy. Oriented to self only. Up with 2 assist, could probably be 1 assist when awake. Bed alarm on at all times with some attempts to get out of bed. Spiked temp of 101.2 tympanically, notified, new orders recieved. Diarrhea x 2 early in the shift. Fentanyl given at 2308 for jaw/neck pain. Face cont to be red and edematous. Ulcer/radiation burn to coccyx open and sore, aloe applied with each BR trip. Last temp 99.8 at 0440. Daily wt 82.9 kg. Follow up:
[2016-07-25 04:50] LABS: ALBUMIN 2.1 gm/dL (3.5-5.0); BLOOD UREA NITROGEN 9 mg/dL (6-24); CALCIUM 7.7 mg/dL (8.5-10.5); CHLORIDE 102 mMol/L (96-110); CO2 23 mMol/L (22-32); CREATININE 0.4 mg/dL (0.5-1.1); ESTIMATED GFR (MDRD EQUATION) > 60; PHOSPHORUS 1.3 mg/dL (2.5-4.9); SODIUM 139 mMol/L (135-145)
[2016-07-25 05:32] LABS: ABSOLUTE NEUTROPHIL CT (ANC) 2.1 K/uL (1.8-7.8); BANDED NEUTROPHIL # 1.5 K/uL (0.0-0.1); BANDED NEUTROPHILS % 40 %; LYMPHOCYTE # 0.7 K/uL (0.8-4.0); LYMPHOCYTE % 19 %; MONOCYTE # 0.3 K/uL (0.0-1.0); SEGMENTED NEUTROPHIL # 0.5 K/uL (1.8-7.8); SEGMENTED NEUTROPHIL % 14 %
[2016-07-25 06:51] LABS: BILIRUBIN URINE NEGATIVE (NEGATIVE); BLOOD URINE NEGATIVE /UL (NEGATIVE); GLUCOSE URINE NEGATIVE (NEGATIVE); KETONE URINE 15 mg/dL (NEGATIVE); LEUKOCYTES URINE NEGATIVE /UL (NEGATIVE); NITRITE URINE NEGATIVE (NEGATIVE); PROTEIN URINE 30 mg/dL (NEGATIVE); UROBILINOGEN URINE NORMAL (NORMAL)
[2016-07-25 07:20] LABS: HEMATOCRIT 20.1 % (33.0-46.0); MCV 97.1 fl (83.0-98.0); MPV 10.7 fl (9.4-12.4); RBC 2.07 M/uL (3.50-5.50); RDW-CV 16.1 % (11.9-14.6); WBC 4.2 K/uL (4.0-11.0)
[2016-07-25 07:22] LABS: HEMOGLOBIN 7.1 g/dL (10.0-15.0); MCH 34.3 pg (27.0-34.0); MCHC 35.3 gm/dL (32.0-36.5)
[2016-07-25 07:22] LABS: COLOR URINE YELLOW (YELLOW); TURBIDITY URINE 3+ (CLEAR)
[2016-07-25 07:24] LABS: AMORPHOUS URINE 3+ (NEGATIVE); BACTERIA URINE FEW (NEGATIVE); EPITHELIAL URINE NEGATIVE #/HPF (NEGATIVE); RBC URINE NEGATIVE #/HPF (NEGATIVE); WBC URINE 0-2 #/HPF (NEGATIVE)
--- NOTE | 2016-07-25 14:20 | NUR ---
Significant Event:patient is more pain and restless in am, MS Contin 60 given at 0720 along with scheduled Dilaudid. K Phos given after K Chloride given, accuchecks 139, 179 at 11-2 units given, more relaxed and comfortable this pm, forgetful at times, up to bathroom often with little to no results stool griffith, Follow up:1 unit of blood after K+ finished infusing, needs Benadryl before unit
[2016-07-25 14:26] LABS: ANION GAP 11.9 (10.0-19.0); BLOOD UREA NITROGEN 10 mg/dL (6-24); CALCIUM 7.3 mg/dL (8.5-10.5); CHLORIDE 107 mMol/L (96-110); CO2 22 mMol/L (22-32); CREATININE 0.5 mg/dL (0.5-1.1); ESTIMATED GFR (MDRD EQUATION) > 60; MAGNESIUM 2.1 mg/dL (1.8-2.6); PHOSPHORUS 1.4 mg/dL (2.5-4.9); POTASSIUM 3.9 mMol/L (3.7-5.1); SODIUM 137 mMol/L (135-145)
[2016-07-26 04:35] LABS: HEMATOCRIT 24.1 % (33.0-46.0); HEMOGLOBIN 8.3 g/dL (10.0-15.0); MCH 33.5 pg (27.0-34.0); MCHC 34.4 gm/dL (32.0-36.5); MCV 97.2 fl (83.0-98.0); RBC 2.48 M/uL (3.50-5.50); RDW-CV 17.2 % (11.9-14.6); WBC 6.7 K/uL (4.0-11.0)
[2016-07-26 04:36] LABS: PLATELET COUNT 46 K/uL (150-450)
[2016-07-26 04:53] LABS: BLOOD UREA NITROGEN 8 mg/dL (6-24); CALCIUM 7.3 mg/dL (8.5-10.5); CHLORIDE 110 mMol/L (96-110); CO2 21 mMol/L (22-32); CREATININE 0.4 mg/dL (0.5-1.1); ESTIMATED GFR (MDRD EQUATION) > 60; PHOSPHORUS 1.1 mg/dL (2.5-4.9); SODIUM 139 mMol/L (135-145)
[2016-07-26 05:34] LABS: BANDED NEUTROPHIL # 1.5 K/uL (0.0-0.1); BANDED NEUTROPHILS % 23 %; LYMPHOCYTE # 0.8 K/uL (0.8-4.0); LYMPHOCYTE % 12 %; MONOCYTE # 1.2 K/uL (0.0-1.0)
[2016-07-26 05:35] LABS: ABSOLUTE NEUTROPHIL CT (ANC) 4.1 K/uL (1.8-7.8); SEGMENTED NEUTROPHIL # 2.6 K/uL (1.8-7.8); SEGMENTED NEUTROPHIL % 38 %
--- NOTE | 2016-07-26 07:10 | NUR ---
Significant Event:pt is a/o x3 but forgetful at times. pt has scheduled ms cotin and dilaudid. pt got dilaudid iv 2mg prn last @0546 for rhonda jaw pain and swelling. pt encouraged to use ice for swelling. pt is a 1 assist w/ walker. pt has several sores to bottom. midline to l upper arm has fluids running. pt did get 1 unit of blood last night. accuchecks ac/hs with bs of 237 and 2 units given. pt hypotensive, sbp in the 90's- low 100's. Follow up:pain control.
--- NOTE | 2016-07-26 19:11 | NUR ---
Significant Event: Patient alert and oriented but forgetful. Vital signs stable, pressures in the low 100s. Facial swelling bilaterally, patient states difficulty chewing. Cold therapy provides some relief. Accuchecks ACHS. Bumex x1. Scheduled MS Dexter motsherine. Dilaudid Q 1hr. Daily weights. Family at bedside. PowerGlide to L) medial upper arm. Ambulated x1 in [place] with family. PT/OT consult. Potassium phosphate x1 IV. Showered in pm. ANC 4.1 remove neutropenic isolation. Follow Up: Saline lock IV. Continue to monitor.
--- NOTE | 2016-07-26 19:19 | NUR ---
I HAVE REVIEWED AND AGREE WITH CHARTING COMPLETED BY [facility] STUDENT EMELY LOVELACE FROM [phone] L[place]ON [place]
[2016-07-27 05:22] LABS: MCV 96.3 fl (83.0-98.0); MPV 10.2 fl (9.4-12.4); RBC 1.61 M/uL (3.50-5.50); RDW-CV 17.8 % (11.9-14.6); WBC 12.2 K/uL (4.0-11.0)
[2016-07-27 05:24] LABS: HEMATOCRIT 15.5 % (33.0-46.0); HEMOGLOBIN 5.4 g/dL (10.0-15.0); MCH 33.5 pg (27.0-34.0); MCHC 34.8 gm/dL (32.0-36.5); PLATELET COUNT 53 K/uL (150-450)
[2016-07-27 05:28] LABS: ALBUMIN 2.1 gm/dL (3.5-5.0); ANION GAP 14.9 (10.0-19.0); BLOOD UREA NITROGEN 7 mg/dL (6-24); CHLORIDE 109 mMol/L (96-110); CO2 19 mMol/L (22-32); CREATININE 0.4 mg/dL (0.5-1.1); ESTIMATED GFR (MDRD EQUATION) > 60; PHOSPHORUS 2.1 mg/dL (2.5-4.9); POTASSIUM 3.9 mMol/L (3.7-5.1); SODIUM 139 mMol/L (135-145)
--- NOTE | 2016-07-27 05:58 | NUR ---
Significant Event:PT IS A/O BUT FORGETFUL. PT IS A 1 ASSIST W/ GAITBELT AND WALKER. PT HAS MIDLINE TO L UPPER ARM AND 20 GAUGE TO L HAND BOTH SL. PT GOT DILAUDID 1 MG @ 1940 AND PERCOCET 1 TAB @ 0431. ACCUCCHECKS AC/HS, BS WAS 137. PT HAD TO BE REDRAWN FOR CBC FOR CONFIRMATION OF HGB OF 5.4. FACIAL SWELLING TO BRIAN SIDES OF FACE. ENCOURAGE ICE PACK. Follow up:
[2016-07-27 06:02] LABS: MCH 33.3 pg (27.0-34.0); MCV 97.3 fl (83.0-98.0); MPV 11.2 fl (9.4-12.4); RBC 2.58 M/uL (3.50-5.50); RDW-CV 18.1 % (11.9-14.6); WBC 12.1 K/uL (4.0-11.0)
[2016-07-27 06:03] LABS: HEMATOCRIT 25.1 % (33.0-46.0); MCHC 34.3 gm/dL (32.0-36.5)
[2016-07-27 06:05] LABS: HEMOGLOBIN 8.6 g/dL (10.0-15.0)
[2016-07-27 06:12] LABS: ABSOLUTE NEUTROPHIL CT (ANC) 8.7 K/uL (1.8-7.8); BANDED NEUTROPHIL # 4.9 K/uL (0.0-0.1); BANDED NEUTROPHILS % 40 %; LYMPHOCYTE # 0.4 K/uL (0.8-4.0); LYMPHOCYTE % 3 %; MONOCYTE # 1.5 K/uL (0.0-1.0); SEGMENTED NEUTROPHIL # 3.8 K/uL (1.8-7.8); SEGMENTED NEUTROPHIL % 31 %
--- NOTE | 2016-07-27 18:57 | NUR ---
Significant Event: PT AO. FORGETFUL AT TIMES. VSS ON RA, AFEBRILE. POWERGLIDE TO AMAYA, SALINE LOCKED. CONTINUES ON IV ABX. SALINE LOCK TO L HAND. ACCURATE I/O. DAILY WT. PT/OT WORKING WITH. AMBULATED IN HALLS WITH 1PA, WALKER. SCHEDULED PAIN MEDS. PRN PERCOCET X1, PRN IVP DILAUDID X1. TOLERATING REGULAR DIET. NO NAUSEA. PRESSURE SORE TO SACRUM. ENCOURAGE REPOSITIONING OFTEN. ALOE VESTA APPLIED. ACHS ACCUCHECKS, NO SSI NEEDED. Follow up: CONTINUE TO MONITOR
--- NOTE | 2016-07-27 18:59 | NUR ---
I HAVE REVIEWED AND AGREE WITH CHARTING COMPLETED BY [facility] STUDENT EMELY LOVELACE FROM [phone] [place]
--- NOTE | 2016-07-28 04:13 | NUR ---
Significant Event:pt is a/o x3 but forgetful. pt is a 1 assist w/ walker and gaitbelt to bathroom, up in halls w/ pt. vss. no prn meds given. accucheck ac/hs bs was 150 no ss insulin given. midline to l upper arm and iv to l hand are sl. plan on being her until thursday or thursday for iv abx. swelling to rhonda sides of face improving. Follow up:
[2016-07-28 04:35] LABS: HEMATOCRIT 24.1 % (33.0-46.0); HEMOGLOBIN 8.3 g/dL (10.0-15.0); MCH 33.6 pg (27.0-34.0); MCHC 34.4 gm/dL (32.0-36.5); MCV 97.6 fl (83.0-98.0); MPV 10.5 fl (9.4-12.4); PLATELET COUNT 62 K/uL (150-450); RBC 2.47 M/uL (3.50-5.50); RDW-CV 17.7 % (11.9-14.6)
[2016-07-28 04:38] LABS: WBC 16.1 K/uL (4.0-11.0)
[2016-07-28 04:50] LABS: ALBUMIN 2.2 gm/dL (3.5-5.0); ANION GAP 13.2 (10.0-19.0); BLOOD UREA NITROGEN 7 mg/dL (6-24); CALCIUM 7.5 mg/dL (8.5-10.5); CHLORIDE 107 mMol/L (96-110); CO2 21 mMol/L (22-32); CREATININE 0.4 mg/dL (0.5-1.1); ESTIMATED GFR (MDRD EQUATION) > 60; POTASSIUM 4.2 mMol/L (3.7-5.1); SODIUM 137 mMol/L (135-145)
[2016-07-28 04:56] LABS: PHOSPHORUS 1.6 mg/dL (2.5-4.9)
[2016-07-28 06:22] LABS: ABSOLUTE NEUTROPHIL CT (ANC) 9.5 K/uL (1.8-7.8); BANDED NEUTROPHIL # 7.2 K/uL (0.0-0.1); BANDED NEUTROPHILS % 45 %; LYMPHOCYTE # 0.5 K/uL (0.8-4.0); LYMPHOCYTE % 3 %; MONOCYTE # 1.3 K/uL (0.0-1.0); SEGMENTED NEUTROPHIL # 2.3 K/uL (1.8-7.8); SEGMENTED NEUTROPHIL % 14 %
--- NOTE | 2016-07-28 16:31 | NUR ---
Patient is alert and oriented. VSS, on room air. Up with stand by assist. Has an order to go outside with her . Midline to the L) upper arm is saline locked but will start potassium phosphate when pharmacy sends. IV to L) hand is saline locked. ACHS accuchecks on mild sliding scale insulin. No coverage given today. Miralax will be given per patient request. Swelling to bilateral jaw/neck has decreased since I had her last on . No draining of parotid glands. Sore to sacrum secondary to radiation. R) arm is a limb alert. Talked to Dr. Luke, he read Dr. Faith' notes and said her shorthand shows that 1 lymphnode removed. The risk of lymphedema is low, he said but just to be on the safe side, keep it a limb alert. Possible discharge tomorrow.
--- NOTE | 2016-07-29 03:09 | NUR ---
Significant Event: Patient alert and oriented X4. UP with stand by assist, walker and gait belt. Vitals stable and on room air. Afebrile this shift. Patinet hoping to go home today. Pt asked if WOC could see her today regarding sacral sore, so WOC consult put in. Sore has been there about 2 years pt stated and if from radiation. Midline to L) upper arm. L) hand IV d/c and was leaking. GOod blood return from midline. Pain meds given around 5. Relief noted. Voiding well. Reposition to L) side often. Refuses R) side. Daily weight. swelling to jaw. C-diff negative. Follow up: Monitor pain
[2016-07-29 05:50] LABS: HEMATOCRIT 24.7 % (33.0-46.0); HEMOGLOBIN 8.4 g/dL (10.0-15.0); MCH 33.7 pg (27.0-34.0); MCV 99.2 fl (83.0-98.0); PLATELET COUNT 71 K/uL (150-450); RBC 2.49 M/uL (3.50-5.50); RDW-CV 17.5 % (11.9-14.6)
[2016-07-29 05:51] LABS: WBC 19.7 K/uL (4.0-11.0)
[2016-07-29 06:06] LABS: ALBUMIN 2.4 gm/dL (3.5-5.0); ANION GAP 13.2 (10.0-19.0); BLOOD UREA NITROGEN 6 mg/dL (6-24); CALCIUM 7.8 mg/dL (8.5-10.5); CHLORIDE 106 mMol/L (96-110); CO2 21 mMol/L (22-32); CREATININE 0.3 mg/dL (0.5-1.1); ESTIMATED GFR (MDRD EQUATION) > 60; PHOSPHORUS 2.3 mg/dL (2.5-4.9); POTASSIUM 4.2 mMol/L (3.7-5.1); SODIUM 136 mMol/L (135-145)
[2016-07-29 08:38] LABS: LYMPHOCYTE # 1.6 K/uL (0.8-4.0); LYMPHOCYTE % 8 %; MONOCYTE # 3.5 K/uL (0.0-1.0); SEGMENTED NEUTROPHIL # 6.1 K/uL (1.8-7.8); SEGMENTED NEUTROPHIL % 31 %
[2016-07-29 08:39] LABS: BANDED NEUTROPHIL # 5.9 K/uL (0.0-0.1); BANDED NEUTROPHILS % 30 %
[2016-07-29] MEDS ORDERED: PERCOCET 5-3251 EACH PO (17:56)
[2016-07-29] MEDS ORDERED: MILK OF MA400 MG/5 M PO (17:57)
[2016-07-29] MEDS ORDERED: FLORASTOR250 MG PO (17:58)
[2016-07-29] MEDS ORDERED: COLACE100 MG PO (17:58)
[2016-07-29] MEDS ORDERED: CLEOCIN HCL300 MG PO (18:00)
--- NOTE | 2016-07-29 18:16 | NUR ---
D: ORDERS RECEIVED FOR THE PATIENT TO BE DISCHARGED TO HOME TODAY WITH HER . I: DISMISSAL INSTRUCTIONS WERE PREPARED AND REVIEWED WITH THE PATIENT AND HER VIRTUALLY. THE FOLLOWING INFORMATION WAS DISCUSSED INCLUDING KRAMES TEACHING SHEETS PROVIDED: UNDERSTANDING SEPSIS, SEPSIS, PERCOCET FLORASTOR, COLACE, MIRALAX, MOM, CLINDAMYCIN AND PREVENTING DVT. REVIEWED ALL NEW MEDICATIONS AND THE OVER THE COUNTER ONES WITH THE PAITENT AND HER . REVIEWED FOLLOW UP APPOINTMENTS MADE WITH DR. ALEXIS, DR. GALO AND WOUND-OSTOMY NURSING HERE AT [facility]. R: THE PATIENT AND HER BOTH VERBALIZED UNDERSTANDING OF THE DISMISSAL EDUCATION AT THE TIME OF TEACHING WITH NO FURTHER QUESTIONS. P: THE ABOVE INFORMATION WAS SHARED WITH THE CHARGE NURSE AND THE PRIMARY NURE THAT THE PATIENT DISMISSAL EDUCATION WAS COMPLETED. THE PATIENT IS READY FOR DISCHARGE TO THE FRONT DOOR VIA WHEEL CHAIR BY NURSING STAFF. THE PATIENT DISCHARGE PAPERS WERE SIGNED AND WITNESSED BY THE VIRTUALLY NURSE. VALERIA SIMON TOOK THE PATIENT'S VITALS AND TRANSPORTED HER BY WHEEL CHAIR TO THE FRONT DOOR WHERE HER IS THERE TO PICK HER UP.
[2016-07-29] MEDS ORDERED: COMPAZINE10 MG PO (18:30)
[2016-07-29] MEDS ORDERED: VALIUM10 MG PO (18:30)
[2016-07-29] MEDS ORDERED: IBRANCE125 MG PO (18:30)
[2016-07-29] MEDS ORDERED: JENTADUETO 2.51 EAC1 PO (18:30)
--- NOTE | 2016-07-29 19:05 | NUR ---
Significant event: Pt was dismissed to home, copies of education, prescriptions and discharge instructions were given to patient. Left upper arm powerglide was removed at 1500 with no complications and coban applied.
[2016-09-18] MEDS ORDERED: XELODA500 MG PO (14:01)
[2016-11-13] MEDS ORDERED: DECADRON4 MG PO (10:03)
[2016-11-13] MEDS ORDERED: COLACE100 MG PO (10:05)
[2016-11-13] MEDS ORDERED: VALIUM5 MG PO (10:05)
[2016-11-13] MEDS ORDERED: LEVEMIR100 UNIT/1 SUB-Q (10:06)
[2016-11-13] MEDS ORDERED: MIRALAX17 GM PO ×2 (10:07→10:14)
[2016-11-13] MEDS ORDERED: SENOKOT8.6 MG PO (10:07)
[2016-11-13] MEDS ORDERED: ADVIL200 MG PO (10:14)
[2016-11-13] MEDS ORDERED: XGEVA120 MG/1.7 SUB-Q (10:14)
[2016-11-13] MEDS ORDERED: PROAIR HFA8.5 GM INH (10:14)
== END 2016-07-29 18:42 | disposition disaster alternative care site (69) | DRG 871 ==
LOC: GMSU 10:00
PROVIDERS: Hospitalist; Internal Medicine; Internal Medicine Hematology & Oncology; Internal Medicine Nephrology; Nurse Practitioner; ADMIT Internal Medicine
DX: A41.2 Sepsis due to unspecified staphylococcus (principal); D61.810 Antineoplastic chemotherapy induced pancytopenia; L89.153 Pressure ulcer of sacral region, stage 3; D84.9 Immunodeficiency, unspecified; E22.2 Syndrome of inappropriate secretion of antidiuretic hormone; C79.51 Secondary malignant neoplasm of bone; Z51.5 Encounter for palliative care; K11.21 Acute sialoadenitis; C50.919 Malignant neoplasm of unspecified site of unspecified female breast; G50.9 Disorder of trigeminal nerve, unspecified; D69.6 Thrombocytopenia, unspecified; E87.6 Hypokalemia; I10 Essential (primary) hypertension; Z90.13 Acquired absence of bilateral breasts and nipples; Z87.442 Personal history of urinary calculi; E11.9 Type 2 diabetes mellitus without complications; G89.4 Chronic pain syndrome; Z72.0 Tobacco use
CPT/HCPCS: C1751; J0692; J1170; J1956; J3010; J3370; J3480; J7030; J7040; J7050; P9040; Q9967

== ENCOUNTER 2016-08-10 15:26 | Inpatient (IN) | payer OTHER ==
[~2016-08-10] VITALS: Ht 170.2 cm; Wt 83.7 kg
--- NOTE | ~2016-08-10 | ER ---
PATIENT'S NAME: RITIKA MELENDEZ [facility] AGE: 50 Y [address] ROOM: [place] [address] LOCATION: GPCU ADMIT DATE: 08/10/2016 ER/Outpatient Report DISCHARGE DATE: FAMILY PHYSICIAN: NELA GALO MD ATTENDING PHYSICIAN: KATE GARAY CHIEF COMPLAINT: Fever and right-sided abdominal pain. HISTORY OF PRESENT ILLNESS: Ms. Melendez is on chemotherapy for primary breast cancer with metastasis. She has been having a fever for the last 2 days. She has had some nausea and vomiting. She has pain with urination and increased burning. It is sometimes difficult to get going. She also has some right-sided upper abdominal pain. She states she has a history of cholecystectomy and appendectomy with 3 C sections. She also has had bilateral mastectomies. She is trying to take some Tylenol for this, but feels much worse than she feels like she should. She was recently hospitalized for some generalized weakness as well. She states that she always has a cough and thinks her cough is perhaps slightly more productive than it has been recently. PAST MEDICAL HISTORY: Documented on the record and reviewed by me. SOCIAL HISTORY: Documented on the record and reviewed by me. MEDICATIONS: Documented on the record and reviewed by me. ALLERGIES: DOCUMENTED ON THE RECORD AND REVIEWED BY ME. REVIEW OF SYSTEMS: All systems were reviewed and negative except as noted in the HPI. PHYSICAL EXAMINATION: VITAL SIGNS: Blood pressure 137/69, pulse 106, respiratory rate is 20, temperature 101.6, and SpO2 is 97% on room air. Pain 6/10. GENERAL: An age-appropriate female, tired, frail appearance, but no obvious pain or distress. NEUROLOGIC: Awake and alert. GCS is 15. HEENT: Normocephalic and atraumatic. Eyes are PERRL. Oropharynx is clear. NECK: Supple. Trachea is midline. PATIENT'S NAME: RITIKA MELENDEZ [facility] AGE: 50 Y [address] ROOM: [address] [address] LOCATION: GPCU ADMIT DATE: 08/10/2016 ER/Outpatient Report DISCHARGE DATE: FAMILY PHYSICIAN: NELA GALO MD ATTENDING PHYSICIAN: KATE GARAY CHEST: Heart is regular rate and rhythm with no murmurs. LUNGS: Clear to auscultation bilaterally. No rhonchi, wheezes, or rales. ABDOMEN: Soft, nontender, and nondistended. Negative Fatima sign. No masses, rebound, or guarding. BACK: Normal to inspection and palpation. RECTAL: The patient has a large 2 x 5 cm gluteal ulcer consistent with pressure ulcer that is full thickness, but appears to be healing. No evidence of cellulitis. EXTREMITIES: Grossly unremarkable except for some edema of the bilateral lower extremities. SKIN: Appears to be grossly intact with no other rashes or breakdown. LABORATORY DATA AND X-RAYS: Chest x-ray with no obvious infiltrates per my review. White count is 1.1 with an absolute neutrophil count of 0.6. Hemoglobin is 6.5, down from 8.4, on the 30th. Platelets are at 58. ESR is greater than 120. INR is 1.08. CMS without electrolyte abnormalities. Glucose of 192, BUN is 12, and creatinine 0.7. GFR is greater than 60. LFTs with an elevation of bilirubin at 2.2. Alkaline phosphatase of 300. AST and ALT are appropriate. Amylase and lipase are appropriate. CK-MB and troponin are not elevated. GGT is 132. CRP is 15.7. Lactate is 1.9. Procalcitonin 0.49. Urinalysis: 500 leukocytes, positive nitrites, 4 urobilinogen, and 150 blood. Micro: Wbc is packed field, rbc 20 to 50, epithelial 0 to 2, and bacteria many. IMPRESSION: 1. Neutropenic fever. 2. Urinary tract infection. 3. Anemia of chronic disease, requiring transfusion. 4. Downtrending blood pressures. 5. Fever. 6. Gluteal pressure ulcer. ED COURSE: The patient was seen and evaluated. She is given fluids and Tylenol. Empiric antibiotics for fever which started with cefepime. The patient continued to feel better despite the fact that her fever did not break. She was given some more fluids. When her CBC came back with anemia, she was consented and typed and screened for 2 units of red blood cells. I discussed the case with Dr. Faith, the patient's oncologist. We will admit her to the hospital for further evaluation and treatment. She will be under the care of Dr. Garay, hospitalist for further evaluation and treatment. PATIENT'S NAME: RITIKA MELENDEZ [facility] AGE: 50 Y [address] ROOM: [place] [address] LOCATION: [facility] ADMIT DATE: 08/10/2016 ER/Outpatient Report DISCHARGE DATE: FAMILY PHYSICIAN: NELA GALO MD ATTENDING PHYSICIAN: KATE GARAY MD NIR WARD/delicia /[id number] d: 08/11/16 1213 t: 08/12/16 1125, OUTPATIENT REPORT
--- NOTE | ~2016-08-10 | DS ---
PATIENT'S NAME: RITIKA MELENDEZ [facility] AGE: 50 Y [address] ROOM: [id number] [place], [place] [address] LOCATION: GPCU ADMIT DATE: 08/10/2016 Discharge Summary DISCHARGE DATE: 08/13/2016 FAMILY PHYSICIAN: Micah Knox MD ATTENDING PHYSICIAN: Isabelle Garay FINAL DIAGNOSES: 1. Severe sepsis, secondary to Enterobacter cloacae complex urinary tract infection. 2. Neutropenic fever. 3. Enterobacter cloacae complex urinary tract infection. 4. Stage IV breast cancer. 5. Chemotherapy-induced pancytopenia. 6. Febrile nonhemolytic transfusion reaction. HISTORY OF PRESENT ILLNESS: In short, the patient was admitted after presenting to the emergency room with fever and was noted to be neutropenic and anemic. She was admitted to PCU. LABORATORY DATA: On admission, sodium 135, discharge 134, potassium on admission was 4.3, discharge 4, BUN on admission was 12, discharge 5, creatinine on admission was 0.7, discharge 0.4, alk phos on admission 300, AST 25, ALT 10, magnesium on admission was 2.2, 2.1 at discharge, amylase and lipase were normal, on admission, cardiac enzymes were normal. C-reactive protein on admission was 15.7. On admit, white blood cell count was 1.1 with an absolute neutrophil count of 600, hemoglobin 6.5, hematocrit 19, platelet count 58, she had 26% bands. On the 2nd hospital day, absolute neutrophil count was a 1000, white blood cell count 1.5, hemoglobin 7.6, most prior to discharge, white blood cell count was 4, hemoglobin 7.7, and platelet count 42,000. Procalcitonin on admission was 0.49, on the 3rd, it was 2.44. Urinalysis on admit was nitrite positive, positive for leukocytes, neutrophils, and packed red blood cells. MICROBIOLOGY DATA: Urine culture was positive for Enterobacter cloacae complex. Blood cultures were negative. X-RAY DATA: Chest x-ray on admission did not show any evidence of a pneumonia. Actually, there is an expansile sclerotic right 4th rib lesion that was noted and there was also a lesion noted in the 8th lateral rib. CT scan of the head without contrast for confusion did not show acute changes. Ultrasound of her abdomen showed that her gallbladder was surgically absent and biliary tree was normal. HOSPITAL COURSE: The patient was admitted to PCU with a neutropenic fever. She was started on cefepime and vancomycin. She was pancultured. She was PATIENT'S NAME: RITIKA MELENDEZ [facility] AGE: 50 Y [address] ROOM: [place] [address] LOCATION: GPCU ADMIT DATE: 08/10/2016 Discharge Summary DISCHARGE DATE: 08/13/2016 FAMILY PHYSICIAN: Micah Knox MD ATTENDING PHYSICIAN: Isabelle Garay placed on the sepsis protocol and received aggressive IV hydration. A blood transfusion was ordered because of her hemoglobin being 6.5 during the night, she did develop a fever and the 2nd unit of blood. The transfusion was stopped and a workup was done for evaluation of a transfusion reaction and in retrospect it came back as a febrile nonhemolytic transfusion reaction. Dr. Maier was asked to see the patient to follow along because of her history of breast cancer. She was on admission is out 4 days from her last chemotherapy. On the , she was initiated on G-CSF to stimulate her bone marrow to produce. On the , she was afebrile, her counts were improved, blood cultures had returned negative; so, the vancomycin was stopped, urine did in fact returned positive for Enterobacter cloacae complex UTI. She was continued on cefepime till her absolute neutrophil count was greater than 1500, which was the day of discharge. It was felt that on the day of discharge, she was afebrile, her total white blood cell count was 4. It was felt that she was stable to be discharged home with oral medications for her UTI. DISCHARGE INSTRUCTIONS: She is discharged on: 1. Neurontin 1200 mg 3 times daily. 2. Prilosec 20 mg daily. 3. Tylenol 325 mg every 6 hours as needed. 4. MS Contin 60 mg every 12 hours p.r.n. pain. 5. Ibuprofen 800 mg twice daily. 6. Dilaudid 2 mg to 4 mg every 4 to 6 hours for pain. 7. Percocet 1 every 6 hours as needed for pain. 8. MS Contin 30 mg q.12 h. p.r.n. 9. Potassium 10 mEq twice daily. 10. Aldactone 25 mg twice a day. 11. Zofran 8 mg every 6 hours as needed for nausea. 12. Xgeva 1 dose subcu every 4 weeks. 13. Albuterol inhaler 2 puffs every 4 hours as needed. 14. Halaven 2.75 mg IV on a 21 day cycle. 15. Milk of mag 30 mL daily as needed for constipation. 16. Colace 100 mg twice daily. 17. MiraLAX 17 g daily as needed for constipation. 18. Cipro 500 mg twice daily for 7 days. The patient did voice understanding of discharge. She is to see Dr. Caron Faith on August 20, at this time, she did share with me that she has concerns that she is concerned about taking chemo the next time because she has felt so poorly both times. PATIENT'S NAME: RITIKA MELENDEZ [facility] AGE: 50 Y [address] ROOM: [address] [address] [facility] ADMIT DATE: 08/10/2016 Discharge Summary DISCHARGE DATE: 08/13/2016 FAMILY PHYSICIAN: Micah Knox MD ATTENDING PHYSICIAN: Isabelle Garay MD LAW/modl /[id number] CC: MD Micah Hernandez MD d: 08/14/16 0244 t: 08/20/16 1044, DISCHARGE SUMMARY
--- NOTE | ~2016-08-10 | HP ---
[facility]GE[facility] 50 Y [address] ROOM: [id number] [place], [place] [address] LOCATION: GPCU ADMIT DATE: 08/10/2016 History & Physical DISCHARGE DATE: FAMILY PHYSICIAN: NELA GALO MD ATTENDING PHYSICIAN: KATE LOJA DATE OF SERVICE: CHIEF COMPLAINT: Neutropenic fever, severe sepsis. HISTORY OF PRESENT ILLNESS: This is a 50-year-old female with a history of breast cancer with mets to the lung and bones and was in active chemo, presents with complaints of fever and generalized weakness. The patient reports that she had been experiencing increasing fatigue since her last chemo 5 days ago, then starting yesterday started spiking again fever at home. The patient checked her temperature yesterday and today and now has a temperature max of 101. The patient also reports frequency of urination and dysuria beginning yesterday as well. The patient also reports increased shortness of breath, dizziness, lightheadedness with ambulation over the last 2 to 3 days as well. Does not report any cough. The patient also reports right-sided abdominal pain, is nonradiating, and it has been going on since yesterday as well. The patient also complains of some nausea, but no vomiting. No diarrhea. No constipation reported. The patient is a patient of Dr. Faith and had her last chemo this past Thursday. PAST MEDICAL HISTORY: Breast cancer with mets to bones, lung, and left eye. She is status post radiation, and she is on chemo currently. History of hypertension, history of type 2 diabetes, tobacco use. FAMILY HISTORY: The patient's father of esophageal cancer and a sister with breast cancer history. SOCIAL HISTORY: The patient has a [id number] history of smoking and still smokes. Denies any drinking alcohol excessively or drug use. REVIEW OF SYSTEMS: All systems have been reviewed and were all negative except as mentioned in the HPI. PHYSICAL EXAMINATION: VITAL SIGNS: Temperature 101.6, blood pressure 137/69, pulse 106, respiratory PATIENT'S NAME: RITIKA MELENDEZ [facility] AGE: 50 Y [address] ROOM: [id number] [place], [place] [address] LOCATION: GPCU ADMIT DATE: 08/10/2016 History & Physical DISCHARGE DATE: FAMILY PHYSICIAN: NELA GALO MD ATTENDING PHYSICIAN: KATE LOJA rate 20, and saturating 97% on room air. GENERAL: The patient is ill and frail appearing, however, resting comfortably. HEENT: Dry mucous membranes. Significant conjunctival pallor noted. SKIN: Without rash or lesions. CHEST: Clear to auscultation bilaterally. ABDOMEN: Soft, nontender, nondistended. Mild discomfort to palpation on the right side of her abdomen. Positive bowel sounds. MUSCULOSKELETAL: No joint swelling, effusion, or redness noted. NEURO: Grossly nonfocal. LABORATORY DATA: ANC of 600. Hemoglobin 6.6. ASSESSMENT AND PLAN: 1. Severe sepsis in the setting of neutropenia. UA with positive nitrite. Culture is pending. We will use cefepime and await on cultures. Continue with aggressive IV fluid resuscitations and supportive care. 2. Anemia, requiring transfusion. Hemoglobin 6.6, and this happened after her chemo 5 days ago. Type and crossing and giving 2 units of packed cells and recheck levels in the morning. 3. Neutropenic fever. This is in relation to the patient's history of cancer and ongoing chemo. Treat sepsis as above, and we will have Dr. Maier follow the patient during hospitalization. Neutropenic precautions to be in still right now. 4. Right upper quadrant pain. The patient also has a mild elevation of her alkaline phosphatase at 300. We will get a right upper quadrant ultrasound to see if there is any concern for ascending cholangitis. 5. Breast cancer with metastasis. The patient is on active chemo. 6. Deep venous thrombosis prophylaxis. The patient's platelets 58 today with a hemoglobin of 6.6. No signs and symptoms of clear blood loss. Hemoglobin corrected appropriately after the 2 units. The patient should be on chemical prophylaxis for deep venous thrombosis prophylaxis as she is at high risk. MD SPRING PEDERSON/susanl /[id number] D: T: 440 HISTORY & PHYSICAL
--- NOTE | ~2016-08-10 | CON ---
PATIENT'S NAME: XENIA MELENDEZ [facility] AGE: 50 Y [address] ROOM: [id number] [place], [place] [address] LOCATION: GPCU ADMIT DATE: 08/10/2016 Consultation DISCHARGE DATE: 08/13/2016 FAMILY PHYSICIAN: Micah Knox MD ATTENDING PHYSICIAN: Isabelle Garay DATE OF CONSULTATION: 08/11/2016 REFERRING PHYSICIAN: Cherelle Faith MD This is a consultation to Dr. Isabelle Garay. HISTORY OF PRESENT ILLNESS: Xenia Melendez is a 50-year-old woman with febrile neutropenia. The history of present illness and past medical history is well documented on the [facility] progress note from 08/06/2016, which is appended to the medical record in Physician's Report and will not be repeated here. The patient is currently on day 13 of her first cycle of eribulin for stage IV breast cancer and is currently on day 2 of cefepime and vancomycin. Since the patient was seen at [facility] on 08/06/2016 she developed fever, nausea, vomiting, dysuria, hesitancy, right-sided pain, leukopenia, neutropenia, and anemia. She has been evaluated closely because she has hyperbilirubinemia and an increased alkaline phosphatase from her metastases to the bone, left choroid and hilar lymph nodes. The patient has developed pyuria, hematuria, and bacteriuria, and was recently hospitalized for parotitis. On 08/06/2016, Mrs. Melendez walked into [facility] with a walker. She felt a bit more unsteady because of her peripheral neuropathy. However, she was capable of self-care. She did water the bernal, washed some dishes and did a little cooking. She felt quite good. She had no problems. On day 8, the patient developed progressive fatigue, and on day 9 and 10, just sat around. On day 11, she vomited and developed right upper quadrant pain and still has it (the patient has had a cholecystectomy). The pain was an ache and did not radiate. She rated at 7-8/10. It was intense enough to disturb her sleep. She did not have this before. The pain resolved after morphine sulfate was given. She also took ibuprofen. She developed rigors which lasted for a long time. She developed night sweats. She vomited again on 2 occasions. She had no hematemesis. She had mild diarrhea. The patient reported to the hospital. She also reported pain in her sacral area from a sacral decubiti. The patient was seen in the emergency room by Dr. Martinez where her temperature was 101.[address] Martinez obtained a white count which was 1100 PATIENT'S NAME: XENIA MELENDEZ [facility] AGE: 50 Y [address] ROOM: [id number] [place], [place] [address] LOCATION: GPCU ADMIT DATE: 08/10/2016 Consultation DISCHARGE DATE: 08/13/2016 FAMILY PHYSICIAN: Micah Knox MD ATTENDING PHYSICIAN: Isabelle Garay with an absolute neutrophil count of 600, hemoglobin was 6.5, and platelets were 58,000. The sedimentation rate was greater than 120. The CMS was remarkable for a glucose of 192 mg/dL, the bilirubin was 2.2 mg/dL, and the alkaline phosphatase was 300 international units/L. The amylase and lipase were normal and the cardiac enzymes were normal. The procalcitonin was 0.49 mg/dL. The urinalysis revealed 500 leukocytes, positive nitrites, a packed white blood cell field and bacteriuria. A chest x-ray compared to 07/25/2016 revealed improvement since the prior study. The expansile sclerotic right 4th rib lesion was again noted. Mediastinal widening was noted. The 8th lateral rib also appeared to be sclerotic consistent with a metastatic focus. A CAT scan of the head without contrast was unremarkable. An ultrasound of the abdomen revealed a surgically absent gallbladder and moderate right hydronephrosis without any clear cause. The spleen was enlarged at 17 cm. The patient was admitted to the hospital, and cefepime and vancomycin were administered. A cooling blanket was applied. The wound ostomy care nurses have been involved. The patient acknowledges she feels considerably better. Mrs. 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 The patient first presented with stage IIB breast cancer in 2010. At that time, she was premenopausal. She underwent a bilateral mastectomy and then received dose dense doxorubicin and cyclophosphamide followed by dose dense paclitaxel in July 2010. Following completion of her chemotherapy tamoxifen was initiated in December,. When the patient developed bony metastases, she was placed on denosumab in March 2014. Fulvestrant was administered for 9 months, then letrozole and palbociclib were initiated in December of 2015 and continued for 6 months. When the patient had progressive disease, capecitabine was substituted on 06/23/2016 and continued for about 2 weeks. Shortly thereafter, the patient was placed on eribulin 07/16/2016 and this is where we currently are. ACTIVE MEDICAL PROBLEMS, CHRONIC AND DIAGNOSED OTHER THAN BREAST CANCER: 1. Hypertension. 2. Type 2 diabetes mellitus. 3. Tobacco use. ACUTE MEDICAL ILLNESSES (RESOLVED), PAST SURGERIES, AND INJURIES: 1. . 2. Cholecystectomy. 3. Bilateral mastectomy. MEDICATIONS: On admission: 1. Ibuprofen. PATIENT'S NAME: XENIA MELENDEZ [facility] AGE: 50 Y [address] ROOM: [id number] [place], [place] [address] LOCATION: GPCU ADMIT DATE: 08/10/2016 Consultation DISCHARGE DATE: 08/13/2016 FAMILY PHYSICIAN: Micah Knox MD ATTENDING PHYSICIAN: Isabelle Garay 2. Ondansetron. 3. Loperamide. 4. Metformin. 5. Alogliptin. 6. Pantoprazole. 7. Fentanyl patch. 8. Potassium chloride. 9. Transdermal nicotine patch. 10. Nystatin. 11. Gabapentin. 12. Hydromorphone. 13. Albuterol. 14. Oxycodone. 15. Diphenhydramine. 16. Eribulin as noted. ADVERSE REACTIONS TO MEDICATIONS: Tegaderm. TRANSFUSIONS: The patient received packed red blood cells in December 2010 and 4 units of packed red blood cells during her recent hospitalization for parotitis and dehydration, and has received 2 units of packed red blood cells here in the hospital. TOBACCO: The patient has smoked for 30 years. SOCIAL HISTORY: The patient lives in [place], [place] with her . She worked for the [employer] in [place], but has been unable to discharge her responsibilities or whatever. Tobacco for 30 years, however, alcohol none. REVIEW OF SYMPTOMS: None others than those noted in the history of the present illness. PHYSICAL EXAMINATION: VITAL SIGNS: Upon admission, pulse 92, blood pressure 100/55, respiratory rate 16, temperature 98.5, height 67 inches, weight 83.4 kg (183 pounds). GENERAL: Well-developed, chronically ill, 50-year-old, female in no acute distress. HEENT: No residual parotid swelling. LYMPH NODES: None palpable. NECK: Without JVD or carotid bruits. CHEST: Decreased breath sounds. Clear. No crackles. PATIENT'S NAME: XENIA MELENDEZ [facility] AGE: 50 Y [address] ROOM: [place] [address] LOCATION: GPCU ADMIT DATE: 08/10/2016 Consultation DISCHARGE DATE: 08/13/2016 FAMILY PHYSICIAN: Micah Knox MD ATTENDING PHYSICIAN: Isabelle Garay CV: Regular. No murmurs, bruits, or adventitious sounds. BREASTS: Status post bilateral mastectomy. ABDOMEN: No masses, tenderness, or megaly. GENITALIA AND RECTAL: Not examined. EXTREMITIES: Without peripheral edema. Sacrum stage III decubitus ulcer present with eschar and erythema. NEURO: The patient can move all 4 extremities. She is appropriate and alert at this time. MICROBIOLOGY DATA: The urine reveals greater than 100,000 Enterobacter cloacae sensitive to cefepime. IMPRESSION: 1. Febrile neutropenia. The pathogen is probably the Enterobacter cloacae. 2. Breast cancer metastatic to the bone and the left choroid. 3. The patient is discouraged. She has been hospitalized on 2 occasions, this one on day 7 of her second cycle of eribulin with neutropenia. 4. As one reviews the CEAs and [id number] in the past, they actually seemed to fall on her short course of capecitabine and she does not recall having serious problems with capecitabine. She has had grade 4 neutropenia, grade 3 thrombocytopenia, and grade 3 anemia with eribulin and fears that consequences of eribulin. She wonders about exploring capecitabine again. RECOMMEND DIAGNOSTIC: Daily CBC with diff. TREATMENT: 1. Cefepime until ANC greater than 1500/mm3. We would then switch to p.o. coverage for total of 10 days of antibiotics as this is a complicated urinary tract infection. 2. The patient will visit with Dr. Faith about her systemic therapy when discharged. CARMINE ADKINS MD GKB/modl /[id number] PATIENT'S NAME: XENIA MELENDEZ [facility] AGE: 50 Y [address] ROOM: [place] [address] [facility] ADMIT DATE: 08/10/2016 Consultation DISCHARGE DATE: 08/13/2016 FAMILY PHYSICIAN: Micah Knox MD ATTENDING PHYSICIAN: Isabelle Garay CC: Shady Baker MD d: 08/16/16 2152 t: 08/17/16 1308, CONSULTATION REPORT
[~2016-08-10 15:26] MED LIST changes: +CLEOCIN HCL300 MG PO; +COLACE100 MG PO; +COMPAZINE10 MG PO; +FLORASTOR250 MG PO; +HALAVEN1 MG/2 ML IV; +IBRANCE125 MG PO; +JENTADUETO 2.51 EAC1 PO; +MILK OF MA400 MG/5 M PO; +PERCOCET 5-3251 EACH PO; +PRILOSEC20 MG PO; +VALIUM10 MG PO; +XELODA500 MG PO
[2016-08-10 16:10] LABS: BLOOD URINE 150 /UL (NEGATIVE); COLOR URINE AMBER (YELLOW); GLUCOSE URINE NEGATIVE (NEGATIVE); KETONE URINE NEGATIVE (NEGATIVE); LEUKOCYTES URINE 500 /UL (NEGATIVE); NITRITE URINE POSITIVE (NEGATIVE); PROTEIN URINE 100 mg/dL (NEGATIVE); TURBIDITY URINE 3+ (CLEAR); UROBILINOGEN URINE 4 mg/dL (NORMAL)
[2016-08-10 16:18] LABS: WBC URINE PACKED FIELD #/HPF (NEGATIVE)
[2016-08-10 16:19] LABS: BACTERIA URINE MANY (NEGATIVE); EPITHELIAL URINE 0-2 #/HPF (NEGATIVE); RBC URINE 20-50 #/HPF (NEGATIVE)
[2016-08-10 16:27] LABS: MCV 97.4 fl (83.0-98.0); MPV 10.4 fl (9.4-12.4); RBC 1.95 M/uL (3.50-5.50); RDW-CV 16.3 % (11.9-14.6)
[2016-08-10 16:28] LABS: HEMOGLOBIN 6.5 g/dL (10.0-15.0); MCH 33.3 pg (27.0-34.0); MCHC 34.2 gm/dL (32.0-36.5); WBC 1.1 K/uL (4.0-11.0)
[2016-08-10 16:29] LABS: PLATELET COUNT 58 K/uL (150-450)
[2016-08-10 16:39] LABS: INR - (THERAPEUTIC) 1.08 (0.92-1.07); PROTIME 11.3 SECONDS (9.8-11.4); PTT 25 SECONDS (25-32)
[2016-08-10 16:43] LABS: ALBUMIN 3.1 gm/dL (3.5-5.0); ALK PHOS 300 IU/L (33-138); ALT 10 IU/L (12-78); ANION GAP 12.3 (10.0-19.0); AST 25 IU/L (10-40); BLOOD UREA NITROGEN 12 mg/dL (6-24); CALCIUM 7.6 mg/dL (8.5-10.5); CHLORIDE 102 mMol/L (96-110); CO2 25 mMol/L (22-32); CREATININE 0.7 mg/dL (0.5-1.1); ESTIMATED GFR (MDRD EQUATION) > 60; POTASSIUM 4.3 mMol/L (3.7-5.1); SODIUM 135 mMol/L (135-145); TOTAL BILIRUBIN 2.2 mg/dL (0.0-1.5); TOTAL PROTEIN 5.8 g/dL (6.0-8.4)
[2016-08-10 17:11] LABS: ABSOLUTE NEUTROPHIL CT (ANC) 0.6 K/uL (1.8-7.8); BANDED NEUTROPHIL # 0.3 K/uL (0.0-0.1); LYMPHOCYTE # 0.3 K/uL (0.8-4.0); LYMPHOCYTE % 24 %; MONOCYTE # 0.1 K/uL (0.0-1.0); SEGMENTED NEUTROPHIL # 0.3 K/uL (1.8-7.8); SEGMENTED NEUTROPHIL % 29 %
[2016-08-10 17:12] LABS: BANDED NEUTROPHILS % 26 %
--- NOTE | 2016-08-11 02:44 | NUR ---
2230-second iv started attempted x2,blood paused at this time. blood restarted, pt noted to have large dark yellow emesis at 2300, pt alert and oriented at this time, up to bsc with 2 assist, pt began to have increased confusion at this time. temp check and up to 100.5 from 100.3, pt returned to bed and continues to become more confused,disoriented to time, place. charge to room at 2310,2315 to room to assess patient, blood paused at this point also. temp 101.3 at 2340 ice packs applied, consulted oncology - and also spoke to blood bank at this time. states that she got blood in june and did not have a reaction and states that he does not think this temp is from the blood rather the sepsis. spoke with blood bank after speaking to oncology, and explained situation of pt increased temps during blood transfusion however does have sepsis as well. based on consultation with oncology and blood bank, blood was restarted. at this point of restarting the blood approx 160ml had been given. blood restarted per orders. Dr. luz also gave January Mehta order to given 650mg of tylenol and 50mg of benadryl and continue blood transfusion. this was given at 2350 and blood continued. pt temp continued to decrease from 103. at completion of blood transfusion temp was 101. blood finished at 0028. vitals temp 101.0 orally, pulse 97, blood pressure 124/62.pt continues to have periods of confusion however is aware of self and place. atibiotic started at completion of blood due to one peripheal line and unable to start another iv. also ordered vanco to be given before next unit of blood which is hung following the first antibiotic.0130 pt to ctscan per orders of to have ct once temp stabalized. temp down to 99.2 at time of transfer to ct. pt returns from ct and temp continues to be stable.
[2016-08-11 03:41] LABS: HEMATOCRIT 21.8 % (33.0-46.0); MCV 93.6 fl (83.0-98.0); MPV 9.8 fl (9.4-12.4); RBC 2.33 M/uL (3.50-5.50); RDW-CV 17.3 % (11.9-14.6)
[2016-08-11 03:42] LABS: HEMOGLOBIN 7.6 g/dL (10.0-15.0); MCH 32.6 pg (27.0-34.0); MCHC 34.9 gm/dL (32.0-36.5); PLATELET COUNT 38 K/uL (150-450); WBC 1.5 K/uL (4.0-11.0)
--- NOTE | 2016-08-11 03:45 | NUR ---
0235, nargis completed and orders sent to lab for 2nd unit of blood. 0240 lab calls stating due to the increased temp we need to do a reaction workup. nurse explains that consulted oncology and blood bank and they are agree this is not a reaction from the blood however her sepsis. lab states we cannot get another unit of blood untill we do the workup becuase she was not aware the reaction was when the blood was running. Nurse spoke with reaction work up will be completed at this time.
[2016-08-11 03:56] LABS: ALBUMIN 2.5 gm/dL (3.5-5.0); ANION GAP 10.7 (10.0-19.0); BLOOD UREA NITROGEN 13 mg/dL (6-24); CHLORIDE 107 mMol/L (96-110); CO2 22 mMol/L (22-32); CREATININE 0.6 mg/dL (0.5-1.1); ESTIMATED GFR (MDRD EQUATION) > 60; MAGNESIUM 2.2 mg/dL (1.8-2.6); POTASSIUM 3.7 mMol/L (3.7-5.1); SODIUM 136 mMol/L (135-145)
[2016-08-11 03:59] LABS: CALCIUM 7.2 mg/dL (8.5-10.5); PHOSPHORUS 1.1 mg/dL (2.5-4.9)
--- NOTE | 2016-08-11 05:28 | NUR ---
Significant Event:Pt has rested well and vss since 033. afebrile at this time. prn tylenol 650mg given po as well as diluadid at this time. 2 unit of blood started at 0515, will have cbc 1 hour after second unit. hgb after first unit of blood was 7.6. wbc 1.5. pt is on neutropenic precautions. iv to left ac. were unable to get 2 iv started so will have picc consult today.pt up with 1-2 assist bedside commode. had 1 very large void. and 2 large bms this shift. continues to be on room air. lung sound clear, bowel sounds active x4. gereralized edema noted. 1-2+, lower exremites 2-3+edema noted. faced flused at times. alarms in place. did have period of confusion with increased temp is now at baseline of alert and oriented x4. Follow up:
[2016-08-11 06:25] LABS: BANDED NEUTROPHIL # 0.1 K/uL (0.0-0.1); BANDED NEUTROPHILS % 4 %; LYMPHOCYTE # 0.4 K/uL (0.8-4.0); LYMPHOCYTE % 25 %; MONOCYTE # 0.2 K/uL (0.0-1.0); SEGMENTED NEUTROPHIL # 0.9 K/uL (1.8-7.8); SEGMENTED NEUTROPHIL % 60 %
[2016-08-11 10:38] LABS: HEMATOCRIT 22.4 % (33.0-46.0); MCV 91.8 fl (83.0-98.0); MPV 9.6 fl (9.4-12.4); RBC 2.44 M/uL (3.50-5.50); RDW-CV 16.9 % (11.9-14.6)
[2016-08-11 11:18] LABS: WBC 1.2 K/uL (4.0-11.0)
[2016-08-11 11:19] LABS: HEMOGLOBIN 7.9 g/dL (10.0-15.0); MCH 32.4 pg (27.0-34.0); MCHC 35.3 gm/dL (32.0-36.5); PLATELET COUNT 39 K/uL (150-450)
[2016-08-11 11:45] LABS: ABSOLUTE NEUTROPHIL CT (ANC) 0.4 K/uL (1.8-7.8); BANDED NEUTROPHIL # 0.2 K/uL (0.0-0.1); BANDED NEUTROPHILS % 13 %; LYMPHOCYTE # 0.5 K/uL (0.8-4.0); LYMPHOCYTE % 40 %; MONOCYTE # 0.2 K/uL (0.0-1.0); SEGMENTED NEUTROPHIL # 0.3 K/uL (1.8-7.8); SEGMENTED NEUTROPHIL % 21 %
--- NOTE | 2016-08-11 16:24 | NUR ---
PICC placement ordered. Blood cultures pending at this time. Pt evaluated for possible midline IV, deferred at this time d/t only one arm to work with d/t hx of mastectomy and plan for PICC if blood cultures neg. 20g PIV placed to L) hand, flushes well and has good blood return.
--- NOTE | 2016-08-11 18:55 | NUR ---
Significant Event: VSS AND RA. AFEBRILE. PO DILAUDID AND MS CONTIN X1 EACH WITH GOOD PAIN CONTROL. 2ND UNIT PRBC'S TRANSFUSED WITHOUT DIFFICULTY. IV ABX CONTINUE. WILL HAVE A PICC LINE PLACED EITHER TOMORROW AFTERNOON OR THURSDAY PENDING BC RESULTS; ANOTHER PIV PLACED TO LT)HAND BY [address] WAY THIS AFTERNOON. UP TO BSC WITH GOOD UOP. WOC FOLLOWING REGARDING OPEN WOUND TO RT)BUTTOCK; ALOE APPLIED PER ORDER AND KEPT OFF OF THAT SIDE WITH WEDGE. Follow up: CONTINUE PLAN OF CARE.
--- NOTE | 2016-08-12 04:48 | NUR ---
Alert and oriented. Cooperative and appreciative. VSS. Afebrile this shift. Neutropenic precautions. 1 assist with gait belt and walker. PICC line to be placed either this afternoon or Thursday- when BC clear. Currently peripherals in left hand and left AC. Open sore on right buttock- aloe vesta cream. Uses wedge to keep off that area. Maxipine and vanco. Vanco trough today. Continue plan of care, discharge when appropriate.
[2016-08-12 05:54] LABS: MCV 92.8 fl (83.0-98.0); MPV 10.9 fl (9.4-12.4); RBC 2.37 M/uL (3.50-5.50); RDW-CV 17.4 % (11.9-14.6)
[2016-08-12 05:58] LABS: HEMOGLOBIN 7.6 g/dL (10.0-15.0); MCH 32.1 pg (27.0-34.0); MCHC 34.5 gm/dL (32.0-36.5); PLATELET COUNT 39 K/uL (150-450); WBC 1.4 K/uL (4.0-11.0)
[2016-08-12 06:08] LABS: ALBUMIN 2.2 gm/dL (3.5-5.0); ANION GAP 11.5 (10.0-19.0); BLOOD UREA NITROGEN 9 mg/dL (6-24); CHLORIDE 108 mMol/L (96-110); CO2 21 mMol/L (22-32); CREATININE 0.4 mg/dL (0.5-1.1); ESTIMATED GFR (MDRD EQUATION) > 60; MAGNESIUM 2.1 mg/dL (1.8-2.6); POTASSIUM 3.5 mMol/L (3.7-5.1); SODIUM 137 mMol/L (135-145)
[2016-08-12 06:21] LABS: ABSOLUTE NEUTROPHIL CT (ANC) 0.7 K/uL (1.8-7.8); BANDED NEUTROPHIL # 0.6 K/uL (0.0-0.1); BANDED NEUTROPHILS % 40 %; LYMPHOCYTE # 0.3 K/uL (0.8-4.0); LYMPHOCYTE % 24 %; MONOCYTE # 0.3 K/uL (0.0-1.0); SEGMENTED NEUTROPHIL # 0.2 K/uL (1.8-7.8); SEGMENTED NEUTROPHIL % 12 %
[2016-08-12 06:26] LABS: CALCIUM 6.9 mg/dL (8.5-10.5)
--- NOTE | 2016-08-12 17:23 | NUR ---
Significant Event: Patient A/O X3. VSS. BP's 100's HR 80-70's. Afebrile. C/O generalized plain this am and left leg pain in the pm. Dilaudid x 2 last one at 1515. Patient working with PT/OT. Ambulating in room and hallway. Out in hallway with wheelchair and mask on. Small BM this am. Decreased appetitie no nausea this shift Follow up: Continue per plan of care. Encourage appetite.
--- NOTE | 2016-08-13 05:54 | NUR ---
A/O. HR 60-70s. SBP 100-110s. ROOM AIR. AFEBRILE. SEE MAR FOR PAIN MEDS GIVEN. SBP UP TO BATHROOM. NO BM. POSSIBLE PICC PLACEMENT TODAY. NEUTROPENIC PRECAUTIONS.
[2016-08-13 06:37] LABS: HEMATOCRIT 22.6 % (33.0-46.0); MCV 94.2 fl (83.0-98.0); MPV 10.7 fl (9.4-12.4); RDW-CV 16.9 % (11.9-14.6)
[2016-08-13 06:44] LABS: HEMOGLOBIN 7.7 g/dL (10.0-15.0); MCH 32.1 pg (27.0-34.0); MCHC 34.1 gm/dL (32.0-36.5); PLATELET COUNT 42 K/uL (150-450)
[2016-08-13 06:48] LABS: ALBUMIN 2.3 gm/dL (3.5-5.0); BLOOD UREA NITROGEN 5 mg/dL (6-24); CALCIUM 7.7 mg/dL (8.5-10.5); CHLORIDE 106 mMol/L (96-110); CO2 21 mMol/L (22-32); CREATININE 0.4 mg/dL (0.5-1.1); ESTIMATED GFR (MDRD EQUATION) > 60; MAGNESIUM 2.1 mg/dL (1.8-2.6); SODIUM 134 mMol/L (135-145)
[2016-08-13 06:49] LABS: PHOSPHORUS 1.1 mg/dL (2.5-4.9)
[2016-08-13 07:16] LABS: ABSOLUTE NEUTROPHIL CT (ANC) 2.9 K/uL (1.8-7.8); BANDED NEUTROPHIL # 2.6 K/uL (0.0-0.1); BANDED NEUTROPHILS % 66 %; LYMPHOCYTE # 0.6 K/uL (0.8-4.0); LYMPHOCYTE % 16 %; MONOCYTE # 0.4 K/uL (0.0-1.0); SEGMENTED NEUTROPHIL # 0.3 K/uL (1.8-7.8); SEGMENTED NEUTROPHIL % 7 %
[2016-08-13] MEDS ORDERED: CIPRO500 MG PO (14:59)
--- NOTE | 2016-08-13 16:11 | NUR ---
Patient dismissed to home with . Patient and spouse deny question or concern of discharge. VSS on RA. IV's dc'd. Rx provided. F/u appointments explained
--- NOTE | 2016-08-15 12:13 | NUR ---
Post discharge follow up call. Patient doing well. Is aware of follow up appointments with primary care and oncologist. Had one episode of nausea and vomiting this morning after breakfast. Talked about eating small amounts of bland food for lunch. Is taking fluids well. Very complimentary of the care she received while hospitalized.
[2016-09-18] MEDS ORDERED: XELODA500 MG PO (14:01)
[2016-11-13] MEDS ORDERED: DECADRON4 MG PO (10:03)
[2016-11-13] MEDS ORDERED: VALIUM5 MG PO (10:05)
[2016-11-13] MEDS ORDERED: COLACE100 MG PO (10:05)
[2016-11-13] MEDS ORDERED: LEVEMIR100 UNIT/1 SUB-Q (10:06)
[2016-11-13] MEDS ORDERED: MIRALAX17 GM PO ×2 (10:07→10:14)
[2016-11-13] MEDS ORDERED: SENOKOT8.6 MG PO (10:07)
[2016-11-13] MEDS ORDERED: XGEVA120 MG/1.7 SUB-Q (10:14)
[2016-11-13] MEDS ORDERED: ADVIL200 MG PO (10:14)
[2016-11-13] MEDS ORDERED: PROAIR HFA8.5 GM INH (10:14)
== END 2016-08-13 15:30 | disposition disaster alternative care site (69) | DRG 871 ==
LOC: GMED 15:26 → GPCU 18:56
PROVIDERS: Emergency Medicine; Internal Medicine; ADMIT Internal Medicine
DX: A41.9 Sepsis, unspecified organism (principal); L89.93 Pressure ulcer of unspecified site, stage 3; D61.810 Antineoplastic chemotherapy induced pancytopenia; C79.49 Secondary malignant neoplasm of other parts of nervous system; D64.9 Anemia, unspecified; N39.0 Urinary tract infection, site not specified; I10 Essential (primary) hypertension; E11.9 Type 2 diabetes mellitus without complications; K21.9 Gastro-esophageal reflux disease without esophagitis; R50.81 Fever presenting with conditions classified elsewhere; R65.20 Severe sepsis without septic shock; R50.84 Febrile nonhemolytic transfusion reaction; Z87.891 Personal history of nicotine dependence; Z92.21 Personal history of antineoplastic chemotherapy; Z90.13 Acquired absence of bilateral breasts and nipples; Z85.3 Personal history of malignant neoplasm of breast; Z85.830 Personal history of malignant neoplasm of bone; Z85.118 Personal history of other malignant neoplasm of bronchus and lung; B96.89 Other specified bacterial agents as the cause of diseases classified elsewhere
CPT/HCPCS: J0692; J1447; J2405; J3370; J7030; J7040; J7050; P9040

== ENCOUNTER 2016-10-26 18:42 | Inpatient (IN) | payer OTHER ==
[~2016-10-26] VITALS: Ht 170.2 cm; Wt 75.4 kg
--- NOTE | ~2016-10-26 | DS ---
PATIENT'S NAME: RITIKA MELENDEZ [facility] [place] AGE: 50 Y [address] ROOM: [id number] [place], [place] [id number] LOCATION: GPCU ADMIT DATE: 10/26/2016 Discharge Summary DISCHARGE DATE: 10/31/2016 FAMILY PHYSICIAN: PHYSICIAN, NO ATTENDING PHYSICIAN: Anita Foreman DISCHARGE DIAGNOSES: 1. E. coli sepsis, secondary to urinary tract infection. 2. Stage IV breast cancer. 3. Hypertension. 4. Diabetes type 2. 5. Pancytopenia, secondary to chemotherapy. REASON FOR ADMISSION: The patient was febrile and severely ill with delirium. LABORATORY DATA: Accu-Cheks have been in the 100s for the most part, well- controlled. Chemistries have shown a sodium slightly low in the 132 to 134 range, it is currently at 134, potassium 4.1, calcium and albumin were both low. Liver function tests were all normal. LDH elevated at 453, pro-BNP was up at 815. Hemoglobin A1c was 7, that was on July 23, 2016. TSH was normal on July 23. Hematology: White count now up to 4.7, which is normal, hemoglobin is 9, platelets up to 58, which is the best they have been, been progressively better throughout the hospitalization, procalcitonin October 26 was 31.05. Urinalysis showed a packed field of wbcs with 50 to 100 red cells and many bacteria. Cultures grew out E. coli, sensitive to pretty much everything. She will go home on Cipro for another 10 days orally. Blood cultures were also positive for the E. coli. Chest x-ray on 10/30/2016 showed no evidence of acute cardiopulmonary disease. It did show the right rib mets. HOSPITAL COURSE: Hospital course was one of gradual, but sort of up and down improvement. The overall trend was positive and she looks good today. PHYSICAL EXAMINATION: CHEST: Clear. HEART: Regular rate and rhythm without murmur. ABDOMEN: Belly is soft, nontender. PSYCH: She is alert and oriented with no signs of delirium. DISCHARGE INSTRUCTIONS: She will be sent home on meds per nursing med recon form and diet and activity will be ad elver. Follow up with Dr. Rubens Maier will be per Dr. Maier for her next chemo. Discharge took less than 30 minutes. ASIA LIRA MD PATIENT'S NAME: RITIKA MELENDEZ [facility] [place] AGE: 50 Y [address] ROOM: [place] [id number] LOC[facility] ADMIT DATE: 10/26/2016 Discharge Summary DISCHARGE DATE: 10/31/2016 FAMILY PHYSICIAN: FRANKLIN JO ATTENDING PHYSICIAN: Anita Foreman/susanl /[id number] d: 11/01/16 06 t: 11/02/16 1721, DISCHARGE SUMMARY
--- NOTE | ~2016-10-26 | ER ---
PATIENT'S NAME: PAUL MELENDEZINE Magda [facility] AGE: 50 Y [address] ROOM: [place] [address] LOCATION: GICU ADMIT DATE: 10/26/2016 ER/Outpatient Report DISCHARGE DATE: FAMILY PHYSICIAN: PHYSICIAN, NO ATTENDING PHYSICIAN: FERNANDO FOREMAN Admission date and time are documented in the medical record. I saw the patient at 1845 hours. CHIEF COMPLAINT: Fever, rigors, generalized weakness, and nausea. HISTORY OF PRESENT ILLNESS: This patient is a 50-year-old female who has been ill for about 24 hours gradually worsening as far as increasing weakness. She has had a fever with shaking rigors, nausea without vomiting, had 1 diarrhea stool, no blood in her stool. Denies any chest pain, shortness of breath, or cough. No abdominal pain. No urinary frequency, urgency, or dysuria. No incontinence. No headache, eyes, ears, nose, throat, neck, or spine pain. Her mucous membranes are dry. No fall or trauma. No recent coughs, colds, or flus. No lightheadedness, dizziness, syncope, or near-syncope. No joint or muscle swelling, redness, or pain. No skin eruptions or rash. Does have non-insulin- dependent diabetes mellitus type 2. No neuro changes. No psych issues. The patient does have a history of metastatic breast cancer to the bone and lung. She has undergone radiation therapy and chemotherapy. She does have an open right sacral pressure sore. She is a smoker. HOME MEDICATIONS: See attached medication list. ALLERGIES: NONE. SOCIAL HISTORY: The patient smokes a third of a pack of cigarettes a day and nondrinker. SIGNIFICANT PAST MEDICAL HISTORY: Tobacco abuse, hypertension, right sacral pressure ulcer, metastatic breast cancer to bone and lung, left eye, obesity, [id number] diabetes mellitus, type 3, pathologic fractures, gastroesophageal reflux, and sepsis. OPERATIONS: Bilateral mastectomy, radiation therapy, and chemotherapy. REVIEW OF SYSTEMS: PATIENT'S NAME: RITIKA MELENDEZ [facility] AGE: 50 Y [address] ROOM: [place] [address] LOCATION: GICU ADMIT DATE: 10/26/2016 ER/Outpatient Report DISCHARGE DATE: FAMILY PHYSICIAN: PHYSICIAN, FRANKLIN ATTENDING PHYSICIAN: FERNANDO FOREMAN All systems reviewed by me are negative with the exception of those discussed in the history of present illness. PHYSICAL EXAMINATION: VITAL SIGNS: Temperature 101.9, tympanic, pulse 130, regular, respirations 24, blood pressure 129/68, and O2 sat on room air is 98%. HEAD: Normocephalic. EYES: Extraocular muscles intact. PERRL. EARS: Clear TMs bilaterally. NOSE: Clear. THROAT: Clear. Mucous membranes dry. NECK: No nuchal rigidity. No thyromegaly or cervical adenopathy. No tenderness. SPINE: Negative. LUNGS: Clear. No rales, rhonchi, or wheezes. HEART: Regular. Pulses are palpable. The patient is tachycardic and tachypneic. No chest wall or ribcage pain to palpation. ABDOMEN: Soft, nondistended, nontender. Good bowel tones. No organomegaly or abnormal mass palpable. EXTREMITIES: Without peripheral edema, cyanosis, or deformity. NEUROVASCULAR: Intact. The patient is a little bit slow with mentation, which is abnormal for her. SKIN: Clear. IMAGING DATA: Chest x-ray shows metastatic lesions in her ribcage. No acute infiltrate. Chest x-ray was read by Radiology, see report. LABORATORY DATA: White count was 2500, 53 segs, 33 bands, 8 lymphs, 3 monos, 1 eo, 2 metamyelocytes, hemoglobin is 9.1 with hematocrit 25.6, and platelet count is 37,000. PTT was 30, pro-time is 12.9 with an INR 1.23. CMS was normal except for a low sodium of 127, low chloride 94, low CO2 content of 19, elevated glucose 156, low calcium 7.8, elevated BUN of 60, elevated creatinine of 3.4, and low GFR of 15. Amylase and lipase were normal. Acetone was 4.7. CPK was normal at 55. [id number] cardiac enzymes were normal. CRP was elevated at 37.5. Pro-BNP was 815. Procalcitonin was 42.27. Lactate was 3.1. Venous pH was 7.33. Urine showed packed white cells, 50 to 100 reds, 2 to 5 epithelial cells, and many bacteria. Culture pending. Blood cultures x2 drawn, results pending. EMERGENCY DEPARTMENT COURSE: I did start the patient on IV normal saline and fluids. We will give her 2 to 3 L IV. Gave her Zosyn 4.5 g IV in the emergency department. I did give her morphine for pain and Zofran for nausea and vomiting. PATIENT'S NAME: RITIKA MELENDEZ [facility] AGE: 50 Y [address] ROOM: [place] [address] LOCATION: [facility] ADMIT DATE: 10/26/2016 ER/Outpatient Report DISCHARGE DATE: FAMILY PHYSICIAN: PHYSICIAN, FRANKLIN ATTENDING PHYSICIAN: FERNANDO FOREMAN IMPRESSION: 1. Sepsis, etiology uncertain, but most likely urinary tract. The patient is tachycardic, tachypneic, with fever of 101.9. She has a little bit altered mental status. She is leukopenic with a white count of 2500 with a bandemia of 33%. New-onset infection. Creatinine is 3.4, platelet count is 37,000, and procalcitonin was 42.27 with a lactate of 3.1. Sepsis start time was 1920 hours. 2. Diabetes mellitus, type 2. The patient does have increased acetone BHB at 4.7 and does have a low venous pH of 7.33, possibly some mild. Her blood sugar was 156. The patient may have some mild diabetic ketoacidosis. 3. Anemia with a hemoglobin of 9.1 and hematocrit of 25.6. 4. Thrombocytopenia with a platelet count of 37,000. 5. History of metastatic breast cancer mets to bone and lung, status post chemotherapy and radiation therapy. 6. Open right sacral pressure ulcer. 7. History of hypertension. 8. History of tobacco abuse. 9. History of pathologic fractures. PLAN: I did discuss this patient with Dr. Foreman, the hospitalist. Dr. Foreman is coming to the emergency room to evaluate the patient and admit the patient to the hospital for further treatment. As stated above, we did start the patient on Zosyn. We gave her Zofran for nausea and morphine for pain. Discussion ensued with the patient concerning my findings and recommendations, she understands. Accumulated critical care time was 40 minutes. MD FANNIE ALLEN/modl /[id number] d: 10/27/16 0117 t: 10/27/16 1831, OUTPATIENT REPORT
--- NOTE | ~2016-10-26 | CON ---
PATIENT'S NAME: XENIA MELENDEZ [facility] AGE: 50 Y [address] ROOM: [id number] [place] [address] LOCATION: GPCU ADMIT DATE: 10/26/2016 Consultation DISCHARGE DATE: FAMILY PHYSICIAN: , FRANKLIN ATTENDING PHYSICIAN: FERNANDO FOREMAN REFERRING PHYSICIAN: Cherelle Faith MD Consult to Dr. Foreman. HISTORY OF PRESENT ILLNESS: Xenia Melendez is a 50-year-old woman with gram-negative sepsis secondary to presumed pyelonephritis. The patient is under treatment for stage IV breast carcinoma metastatic to the bone, left choroid, possibly the lungs, and possibly the left suprahilar area. The history of the present illness is obtained from Mrs. Melendez, who is a fair historian; her family; and reviewing the [facility] note from 10/22/2016, which is appended to the chart in physician's records, as well as the current and old [facility] and [facility] records. Msr. Melendez is currently on day 4 of her third cycle of capecitabine for Stage IV breast cancer. She is on day six of her 34th cycle of denosumab for her bony metastatic disease. She saw Nori Ng PA-C, at [facility] on 10/22/2016, and at that time, was doing reasonably well. She was living at home with her in [place], [place]. She was not employed outside the home. 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 She was certainly capable of self-care. Capecitabine was recommended and initiated on 10/24/2016. On 10/25/2016, day two, the patient developed anorexia and fatigue. On 10/26/2016, day three of therapy, the patient developed rigors, fevers, vomiting, urinary hesitancy, and displayed signs of acute illness. She had some dysuria when she strained to urinate. The patient reported to the [facility] Emergency Room on 10/27/2016, where she was seen by Dr. Osbaldo Turcios. A urinalysis revealed 500 leukocytes/UL and protein 100 mg/dL. The patient had a packed field of wbc's and 50 to 100 rbc/HPF. Many bacteria were present. A urine culture was performed, and Gram-negative organisms are growing. Blood cultures for aerobes and anaerobes revealed Gram-negative rods in both blood cultures, one obtained peripherally and one obtained possibly in her implanted vascular access device. The white count was 2500 with 53 segs and 33 bands, the hemoglobin was 9.1 g/dL, the MCV was 98, and the platelets were 27,000. By contrast, on 10/22/2016, the white count was 4400, the hemoglobin was 9.9, and the platelets were 144,000. A CMS revealed the sodium was 127, the BUN was 60, and the creatinine was 3.4. The total bilirubin was 2.9 mg/dL. The other liver function tests were unremarkable. The albumin was 3.2 g/dL. The bilirubin on 10/22/2016 was 1.1 mg/dL. A serum lactate was 1.7 mEq/L. A chest x-ray revealed PATIENT'S NAME: XENIA MELENDEZ [facility] AGE: 50 Y [address] ROOM: [place] [id number] [facility] ADMIT DATE: 10/26/2016 Consultation DISCHARGE DATE: FAMILY PHYSICIAN: PHYSICIAN, FRANKLIN ATTENDING PHYSICIAN: FERNANDO FOREMAN A an opacity at the left suprahilar region consistent with known suprahilar mass. No areas of dense lung consolidation were identified. There was a large expansile sclerotic bone lesion at the posterior right eighth rib and an expansile sclerotic bone lesion at the anterior lateral right fourth rib. These findings were also seen on prior imaging. There was mild scoliosis in the thoracic spine. Dr. Foreman admitted the patient and placed her on meropenem. The patient has improved. As noted, Mrs. Melendez has stage IV breast cancer, which was first documented in 2010. At that time, she was premenopausal and the stage was stage IIB. The patient underwent a bilateral mastectomy, followed by dose-dense doxorubicin and cyclophosphamide and dose-dense paclitaxel. In December 2010, tamoxifen was substituted. She developed bony metastases in March 2014, and denosumab and fulvestrant were initiated. In December of 2015, letrozole and palbociclib were substituted and given for six months. On 06/23/2016, capecitabine was given. It was reasonably well tolerated, and it was not clear what effect it would have on the metastatic breast cancer. However, she was switched to eribulin on 07/16/2016. The patient did not thrive on eribulin. She was hospitalized with acute bilateral parotitis on 07/23/2016. Following her second cycle of therapy, she was hospitalized with Enterobacter cloacae complex urinary tract infection. The patient required antibiotics both times. The patient's CEA and CA27.29 fell on eribulin, though her liver function tests did not improve. Therefore, on 08/27/2016, capecitabine was substituted. As noted, this is day 4 of her third cycle, and she tolerated the first three cycles well. Her liver function tests continued to improve, although her CEA and CA27-29 started to rise again. Prior to her admission, other than her acute symptoms, the patient had some dry eyes and had a productive cough, and had used polyethylene glycol. She may have had increased right and left costovertebral angle tenderness, and had needed hydromorphone. ACTIVE MEDICAL PROBLEMS, CHRONIC AND DIAGNOSED: 1. Hypertension. 2. Type 2 diabetes mellitus. 3. Ongoing tobacco use. ACUTE MEDICAL ILLNESSES (RESOLVED), PAST SURGERIES, AND INJURIES: 1. . 2. Cholecystectomy. 3. Bilateral mastectomy. MEDICATIONS UPON ADMISSION: PATIENT'S NAME: XENIA MELENDEZ [facility] AGE: 50 Y [address] ROOM: [id number] [place], [place] [address] LOCATION: GPCU ADMIT DATE: 10/26/2016 Consultation DISCHARGE DATE: FAMILY PHYSICIAN: PHYSICIAN, NO ATTENDING PHYSICIAN: FERNANDO FOREMAN 1. APAP. 2. Albuterol inhaler. 3. Capecitabine. 4. Denosumab subq every four weeks. 5. Gabapentin 1200 mg p.o. t.i.d. 6. Hydromorphone 2 mg p.o. every four to six hours. 7. Ibuprofen 800 mg p.o. b.i.d. 8. MS Contin 90 mg every twelve hours. 9. Omeprazole 20 mg daily. 10. Ondansetron 8 mg p.o. every six hours. 11. Oxycodone with APAP. 12. Polyethylene glycol. 13. KCl 10 mEq p.o. b.i.d. 14. Spironolactone 25 mg p.o. b.i.d. ADVERSE REACTIONS TO MEDICATIONS, TRANSFUSIONS, AND ALLERGIES: No known drug allergies. The patient has received six units of leukocyte depleted packed red blood cells. Tobacco: Ongoing tobacco use. SOCIAL HISTORY: The patient is and lives in [place] with her . REVIEW OF SYMPTOMS: Negative other than those noted in the history of the present illness. PHYSICAL EXAMINATION: VITAL SIGNS: Pulse was 84 and regular, blood pressure was 90/60, respiratory rate was 18, and temperature was 98 degrees. Height is 67 inches and weight is 79.1 kg (175 pounds). BMI is 26.6 kg/m2. GENERAL: Well-developed, chronically ill, 50-year-old female, in no acute distress. Mild alopecia. HEENT: No evidence of mucositis. LYMPH NODES: None palpable. SKIN: Unremarkable. NECK: Without JVD or carotid bruits. CHEST: Decreased breath sounds. No crackles. CARDIOVASCULAR: Regular rate and rhythm. No murmurs, bruits, or adventitious sounds. BREASTS: Status post bilateral mastectomy. No chest wall disease. ABDOMEN: No masses, tenderness, or megaly. Bowel sounds were present. GENITALIA AND RECTAL: Not examined. PATIENT'S NAME: XENIA MELENDEZ [facility] AGE: 50 Y [address] ROOM: [place] [address] [facility] AD[facility] DATE: 10/26/2016 Consultation DISCHARGE DATE: FAMILY PHYSICIAN: PHYSICIAN, NO ATTENDING PHYSICIAN: FERNANDO FOREMAN EXTREMITIES: Without peripheral edema. The sacrum cannot be examined. NEUROLOGICAL: The patient moves all four extremities. She is alert and appropriate. IMPRESSION: 1. Non-neutropenic fever secondary to pyelonephritis leading to Gram- negative sepsis and multiorgan dysfunction. 2. Stage IV breast cancer metastatic to the bone, left choroid of the eye, possibly the lungs, and possibly the left suprahilar area. 3. We need to remember that the patient does use tobacco and could develop a second primary lung cancer. 4. The patient's liver function tests have continued to improve on her first two cycles of capecitabine, but the tumor markers are rising. The patient was doing well in terms of tumor symptom control. 5. It is prudent to hold the capecitabine, though the capecitabine is probably not the cause of the neutropenia and thrombocytopenia. These are probably due to sepsis. 6. The patient has not been predisposed to recurrent urinary tract infections in the past. It is not entirely clear why she is now. Breast cancer can metastasize to the periureteral areas. RECOMMENDATIONS: DIAGNOSTIC: No further tests. TREATMENT: 1. Hold capecitabine. 2. Continue meropenem. 3. Cautiously re-institute MS Contin if her renal function improves. Morphine metabolites can accumulate and lead to excess toxicity in patients with acute renal failure, and it is probably prudent to reduce her doses, which Dr. Foreman has already done. CARMINE ADKINS MD GKB/modl /[id number] CC: MD Erickson Lr MD, PhD d: 10/28/160 t: 10/30/16 1553, CONSULTATION REPORT
--- NOTE | ~2016-10-26 | HP ---
PATIENT'S NAME: PAUL MELENDEZINE Magda [facility] AGE: 50 Y [address] ROOM: [place] [id number] LOCATION: CU ADMIT DATE: 10/26/2016 History & Physical DISCHARGE DATE: FAMILY PHYSICIAN: PHYSICIAN, NO ATTENDING PHYSICIAN: FERNANDO LOWE DATE OF SERVICE: CHIEF COMPLAINT: Fever and not feeling well. HISTORY OF PRESENT ILLNESS: A 50-year-old lady with a past medical history of metastatic breast cancer receiving chemotherapy, presented to the emergency department today, brought in by mother and sister when she had been feeling sick for past couple of days with decreased appetite, couple of episodes of emesis. This afternoon she woke up from the nap and she was confused, was having a really bad shakes. They checked the temp and temp was 99. She was brought in. On my encounter, she after receiving some IV fluids in the emergency department is more alert, still having shakes. She said she is just not feeling very well. She does have burning on urination and she has trouble initiating her urination. She did complain of bilateral flank pain. On further questioning, she states she does not have any headache, any trouble with the eyes, any trouble swallowing, any chest pain, any cough, any sputum production, any abdominal pain, constipation, but did have a couple episodes of diarrhea as well. She does complain of lower extremity swelling. REVIEW OF SYSTEMS: All other systems reviewed and were negative except as mentioned in the HPI. ALLERGIES: THE PATIENT IS ALLERGIC TO TEGADERM. PAST MEDICAL HISTORY: Hypertension, type 2 diabetes mellitus, metastatic breast carcinoma, pancytopenia. MEDICATIONS: Being reconciled right now. SOCIAL HISTORY: Lifelong smoker. Currently smokes. FAMILY HISTORY: Significant for colon cancer. PATIENT'S NAME: PAUL MELENDEZINE Magda [facility] AGE: 50 Y [address] ROOM: [address] [address] LOCATION: CU ADMIT DATE: 10/26/2016 History & Physical DISCHARGE DATE: FAMILY PHYSICIAN: PHYSICIAN, NO ATTENDING PHYSICIAN: FERNANDO LOWE PHYSICAL EXAMINATION: VITAL SIGNS: On admission to the hospital, is blood pressure 129/68, pulse 130, saturating 98% on room air, temperature was 101.9. GENERAL: No acute distress. Alert and oriented x3. HEENT: Head: Atraumatic, normocephalic. Eyes: Nonicteric. No pallor. Oropharynx: Dry mucous membranes. CARDIOVASCULAR: Tachycardia. S1 and S2. No murmurs, gallops, or rubs. LUNGS: Clear to auscultation bilaterally. Mild scattered expiratory wheezes. ABDOMEN: Soft, nontender, nondistended. Bilateral costovertebral tenderness present. EXTREMITIES: Legs, +1 extremity edema. SKIN: Generalized pallor noted. MUSCULOSKELETAL: No muscle tenderness noted, but there is tenderness along the paraspinal region. PSYCH: Normal affect, mood, and speech. ENDOCRINE: No thyromegaly or myxedema noted. LYMPHATICS: No lymphangiitis or lymphadenopathy noted. LAB WORK: Chest x-ray were done in the emergency department which was basically unchanged from the previous chest x-ray and does not reveal any acute infiltrate. PH was 7.33, pCO2 of 36, and PO2 of 44. Lactate was 3.1. Accu- Cheks 178. WBC was 2.59, hemoglobin of 9.1, platelets 37, absolute neutrophil count of 2.2. Creatinine was elevated at 3.6, BUN 68. Sodium 127, potassium 4.9, chloride 99. Carbon dioxide of 19, calcium 7.8. Bilirubin was elevated at 2.9. UA was grossly positive for pyuria. Procalcitonin was elevated to 42. ASSESSMENT AND PLAN: 1. Severe sepsis secondary to pyelonephritis. 2. Pyelonephritis. 3. Acute kidney injury. 4. Pancytopenia. 5. Hyponatremia. 6. Hyperbilirubinemia. 7. Metastatic breast cancer. PLAN: We are going to admit this patient inpatient. Time of sepsis identification was 7:20 p.m. Since then, 30 mL/kg isotonic fluids have been administered. One dose of broad-spectrum antibiotics in terms of Zosyn had been given. Prior to that, lactic acid and blood cultures have been drawn. Urinalysis have been drawn. We will recheck lactate in 2 hours. Her pressures and heart rate is now better. We will guide further fluid therapy based on her PATIENT'S NAME: RITIKA MELENDEZ [facility] AGE: 50 Y [address] ROOM: [address] [place] [id number] LOCATION: [facility] ADMIT DATE: 10/26/2016 History & Physical DISCHARGE DATE: FAMILY PHYSICIAN: PHYSICIANFRANKLIN ATTENDING PHYSICIAN: FERNANDO LOWE symptoms. We will monitor creatinine in the morning. We will monitor I and Os closely. Hyponatremia is hypovolemic in nature. We will closely monitor it as well. Hyperbilirubinemia secondary to metastasis. Just monitor. Once the home medications are available, we will reconcile them. DVT prophylaxis and GI prophylaxis will be provided. MD RAYMOND DANIELS/delicia /[id number] D: 153 T: 751 HISTORY & PHYSICAL
--- NOTE | ~2016-10-26 | CON ---
PATIENT'S NAME: PAUL MELENDEZINE Magda [facility] AGE: 50 Y [address] ROOM: [place] [id number] LOCATION: GPCU ADMIT DATE: 10/26/2016 Consultation DISCHARGE DATE: FAMILY PHYSICIAN: PHYSICIAN, NO ATTENDING PHYSICIAN: FERNANDO LOWE DATE OF CONSULTATION: 10/30/2016 REFERRING PHYSICIAN: Cherelle Faith MD CHIEF COMPLAINT: Urinary tract infection. HISTORY OF PRESENT ILLNESS: The patient is a pleasant 50-year-old female who is currently admitted for treatment of urosepsis. She had presented and ultimately was admitted to the hospital on October 26, 2016, with complaints of several days of decreased appetite, emesis, low-grade temperature, and lower back pain. She had also had some dysuria as well as some difficulty with initiating her urinary stream. She does have a history of metastatic breast carcinoma for which she has been undergoing chemotherapy for. Ultimately, her urine and blood cultures both grew out E. coli, which was pansensitive on sensitivity. Her serum creatinine initially was elevated upon arrival at 3.4 but did improve down to 1.9 today with hydration. She did also undergo a renal ultrasound earlier today, which demonstrated some moderate right hydronephrosis and mild left hydronephrosis with a mildly distended urinary bladder. On review of her previous images, she had a CT scan back in January 2015, which demonstrated a punctate left lower pole renal calculus. I was consulted by Dr. Maier to assess for consideration of getting the patient started on a suppressive low- dose antibiotic. PAST MEDICAL HISTORY: 1. Hypertension. 2. Diabetes mellitus type 2. 3. Metastatic breast carcinoma. 4. Pancytopenia. PAST SURGICAL HISTORY: 1. . 2. Cholecystectomy. 3. Bilateral mastectomy. MEDICATIONS: See hospitalization medication reconciliation. ALLERGIES: [facility] 50 [facility] [address] ROOM: [place] [address] LOCATION: GPCU ADMIT DATE: 10/26/2016 Consultation DISCHARGE DATE: FAMILY PHYSICIAN: PHYSICIAN, FRANKLIN ATTENDING PHYSICIAN: FERNANDO LOWE NO KNOWN DRUG ALLERGIES. FAMILY HISTORY: Significant for colon cancer. SOCIAL HISTORY: The patient is a lifetime smoker, currently uses tobacco. REVIEW OF SYSTEMS: A full 10 plus point review of systems was reviewed. Pertinent positive and negative findings included in the history of present illness. All other systems reviewed and are otherwise negative. PHYSICAL EXAMINATION: VITAL SIGNS: The patient's temperature is 98.5 degrees Fahrenheit, pulse 64, blood pressure 121/71, respiratory rate 15, oxygen saturation 97% on room air. Her weight is 166 pounds and her height is 5 feet 7 inches. CONSTITUTIONAL: The patient is in no acute distress. She is awake and oriented. HEENT: Extraocular muscles intact. Mucous membranes moist. No drainage per ears or nose. CARDIAC: Good peripheral perfusion. RESPIRATORY: No audible wheezing. ABDOMEN: Benign. MUSCULOSKELETAL: Moves all extremities. NEUROLOGIC: No focal deficits noted. PSYCHIATRIC: Answers questions appropriately with normal affect. IMAGING: I personally reviewed her recent ultrasound images consistent with findings noted above in history of present illness. IMPRESSION: 1. Urosepsis. 2. History of metastatic breast carcinoma. PLAN: I had a long discussion today with the patient regarding my findings. We discussed consideration of a three month course of low-dose prophylactic antibiotic to help break the cycle of infection to which she wanted to proceed with upon completion of current full dose treatment antibiotic. Again, I would recommend on discharge that she be given a prescription for nitrofurantoin 50 mg p.o. at bedtime to be started upon completion of the current treatment course antibiotic for 3 months' course. We will plan to see the patient back for followup in my clinic in approximately 4 to 6 weeks to PATIENT'S NAME: RITIKA MELENDEZ [facility] AGE: 50 Y [address] ROOM: [address] [place] [id number] LOCATION: GPCU ADMIT DATE: 10/26/2016 Consultation DISCHARGE DATE: FAMILY PHYSICIAN: PHYSICIAN, FRANKLIN ATTENDING PHYSICIAN: FERNANDO LOWE A follow back up. We will also keep an eye on her [id number] hydronephrosis but also check a postvoid residual back in clinic when we see her back to make sure that she is efficiently emptying her bladder. Certainly, should she have any further symptoms or worsening hydronephrosis on ultrasound, she could be a candidate for further evaluation with a MAG3 renal scan, but also ultimately if need be and indicated, placement of indwelling ureteral stent. For now, however, we will continue with observation and have her follow back up as an outpatient, which we will likely get her set up for a followup renal ultrasound at that time. Her questions and concerns were addressed and she has no further at this time. DANIELLE BARBOSA MD GP/delicia /[id number] d: 10/31/16 0034 t: 11/06/16 1119, CONSULTATION REPORT
[~2016-10-26 18:42] MED LIST changes: +CIPRO500 MG PO
[2016-10-26 19:12] LABS: LACTATE 3.1 mEq/L (0.50-1.60); PCO2 36 mmHg (35-45); PO2 44 mmHg (80-90)
[2016-10-26 19:14] LABS: HEMATOCRIT 25.6 % (33.0-46.0); HEMOGLOBIN 9.1 g/dL (10.0-15.0); MCHC 35.5 gm/dL (32.0-36.5); MCV 98.5 fl (83.0-98.0); MPV 9.8 fl (9.4-12.4); WBC 2.5 K/uL (4.0-11.0)
[2016-10-26 19:16] LABS: PLATELET COUNT 37 K/uL (150-450)
[2016-10-26 19:22] LABS: INR - (THERAPEUTIC) 1.23 (0.92-1.07); PROTIME 12.9 SECONDS (9.8-11.4); PTT 30 SECONDS (25-32)
[2016-10-26 19:29] LABS: BILIRUBIN URINE NEGATIVE (NEGATIVE); BLOOD URINE 250 /UL (NEGATIVE); COLOR URINE YELLOW (YELLOW); GLUCOSE URINE NEGATIVE (NEGATIVE); KETONE URINE 5 mg/dL (NEGATIVE); LEUKOCYTES URINE 500 /UL (NEGATIVE); NITRITE URINE NEGATIVE (NEGATIVE); PROTEIN URINE 100 mg/dL (NEGATIVE); TURBIDITY URINE 4+ (CLEAR); UROBILINOGEN URINE 1 mg/dL (NORMAL)
[2016-10-26 19:36] LABS: ALBUMIN 3.2 gm/dL (3.5-5.0); ALK PHOS 129 IU/L (33-138); ALT 19 IU/L (12-78); ANION GAP 18.9 (10.0-19.0); AST 29 IU/L (10-40); CALCIUM 7.8 mg/dL (8.5-10.5); CHLORIDE 94 mMol/L (96-110); CO2 19 mMol/L (22-32); CPK 55 IU/L (21-215); CREATININE 3.4 mg/dL (0.5-1.1); POTASSIUM 4.9 mMol/L (3.7-5.1); SODIUM 127 mMol/L (135-145); TOTAL PROTEIN 6.3 g/dL (6.0-8.4)
[2016-10-26 19:37] LABS: BLOOD UREA NITROGEN 60 mg/dL (6-24); TOTAL BILIRUBIN 2.9 mg/dL (0.0-1.5)
[2016-10-26 19:40] LABS: RBC URINE 50-100 #/HPF (NEGATIVE); WBC URINE PACKED FIELD #/HPF (NEGATIVE)
[2016-10-26 19:41] LABS: BACTERIA URINE MANY (NEGATIVE)
[2016-10-26 19:56] LABS: ABSOLUTE NEUTROPHIL CT (ANC) 2.2 K/uL (1.8-7.8); BANDED NEUTROPHIL # 0.8 K/uL (0.0-0.1); BANDED NEUTROPHILS % 33 %; LYMPHOCYTE # 0.2 K/uL (0.8-4.0); LYMPHOCYTE % 8 %; MONOCYTE # 0.1 K/uL (0.0-1.0); SEGMENTED NEUTROPHIL # 1.3 K/uL (1.8-7.8); SEGMENTED NEUTROPHIL % 53 %
[2016-10-26 22:59] LABS: INR - (THERAPEUTIC) 1.24 (0.92-1.07); PROTIME 13.1 SECONDS (9.8-11.4)
--- NOTE | 2016-10-26 23:22 | NUR ---
Patient admitted from ER for probably urosepsis. Blood cultures drawn in ER, UA done in ER. ATB's started. Hx of HTN, breast cancer that has metastisized. On chemo with last dosing this am 10/26. Has had bilateral masetectomies, several lumpectomies. HX of c-sectiions, diabetes-diet controlled. Previous lumbar fracture and has chronic back pain. Open pressure sore to bottom/coccyx, patient states she has been working with WOC on. Does have slight tremoring to hands and has had some hx of numbness there, although denies it at this time.
[2016-10-27 05:18] LABS: HEMATOCRIT 22.1 % (33.0-46.0); MCV 98.7 fl (83.0-98.0); MPV 10.4 fl (9.4-12.4); RBC 2.24 M/uL (3.50-5.50); RDW-CV 16.9 % (11.9-14.6)
[2016-10-27 05:22] LABS: HEMOGLOBIN 7.8 g/dL (10.0-15.0); MCH 34.8 pg (27.0-34.0); MCHC 35.3 gm/dL (32.0-36.5); PLATELET COUNT 35 K/uL (150-450)
[2016-10-27 05:32] LABS: CALCIUM 7.9 mg/dL (8.5-10.5); POTASSIUM 4.6 mMol/L (3.7-5.1)
[2016-10-27 05:35] LABS: ANION GAP 17.6 (10.0-19.0)
[2016-10-27 06:06] LABS: ABSOLUTE NEUTROPHIL CT (ANC) 1.7 K/uL (1.8-7.8); BANDED NEUTROPHIL # 0.6 K/uL (0.0-0.1); BANDED NEUTROPHILS % 32 %; LYMPHOCYTE # 0.3 K/uL (0.8-4.0); LYMPHOCYTE % 13 %; SEGMENTED NEUTROPHIL % 52 %
--- NOTE | 2016-10-27 08:55 | NUR ---
Significant Event: A&Ox3, VSS on RA-1L O2. Up to bathroom with 2PA, Dilaudid IV given X1, Resumed home medication. Rested well rest of shift. PIV to left AC at TKO with INT ABX. Voiding and taking PO well. Cooperative with cares. Follow up: continue with sepsis protocol
--- NOTE | 2016-10-27 14:59 | NUR ---
A-CONSULT RECEIVED FOR STAGE II PRESSURE ULCER TO BOTTOM/COCCYX HX: BREAST CA THAT HAS METASTASIZED; UNDERGOING CHEMO; LAST DOSE 10/26 NO UNPLANNED WT LOSS; HAS GAINED 5 POUNDS RECENTLY. APPETITE IS FAIR HT: 67 IN. WT: 79.1 KG. BMI: 27.3 LABS REVIEWED MEDS: PROTONIX, NEURONTIN, PRN BOWEL MEDS, ZOFRAN, MS CONTIN, DILAUDID, XGEVA, PERCOCET, NOVOLOG (MILD SS), MERREM, XELODA. DIET RX: REGULAR. PO INTAKE IS FAIR EST NUTR NEEDS: 8419-9762 KCALS (25-30 KCALS/KG) 79-111 GM PROTEIN (1.0-1.4 GM/KG) 1 ML FLUID/KCAL D-AT NUTRITION RISK W/INCREASED NUTRIENT NEEDS R/T 1)ALTERED SKIN INTEGRITY AND 2)CATABOLIC DZ AEB BREAST CA W/MET DX, OA TO COCCYX/BOTTOM. I-START GAEL BID M/E-GOAL: PO INTAKE >/=50% BY NEXT F/U 1)F/U PO INTAKE, SUPPLEMENT, SKIN, AND POC IN 3-5 DAYS 2)ASSIST NEEDED
--- NOTE | 2016-10-27 15:37 | NUR ---
Significant Event: Patient alert and oriented. Forgetful at times. Follows commands. Noticeable tremor to upper extremities. Denies N/T. Moves all limbs spontaneously. VSS. Hypotensive. MAPs>65. Palpable pulses. 1-2+ edema in bialteral lower extremities. Afebrile. Room air with sats in the mid 90s. LS clear and diminished. Voids per commode. Regular diet. Pills whole with water. BM X2 this shift. Open pressure sore to coccyx. Wood cultured and sent to lab. Patient did have positive blood cultures today. Respiratory sample sent down as well. L) AC PIV infusing at TKO. 1-2 assist with gaitbelt. Unsteady and weak on feet. Dilaudid and percocet given for pain. Family at bedside. Follow up:
--- NOTE | 2016-10-27 16:16 | NUR ---
Introduced self and CM role to Xenia. She lives in [place] with her , Valentin, plan to return there upon dismissal. PCP is . She manages her own medications at baseline, denies the need for any help with this when she goes home. Xenia uses a FWW at baseline for mobility and stability. She denies the need for any DME or HHC upon dismissal. Left CM name on her board for further questions or needs. CM to continue to follow and assist. Plan home. Insurance is [employer].
--- NOTE | 2016-10-28 04:16 | NUR ---
Significant Event: A&Ox3. Forgetful at times. Peripheral vision loss to left side, chronic. Up 2 assist pivot pt able to move herself just unsteady and shakey. On tele SR. VSS. Goal to keep MAP >60. 1-2+ edema in lower extremities. RA lungs clear. Voids per bedside commode. Accurate I&O. Regular diet low appetite. Last BM 10/27. Has pressure sore to bottom apply sensi care and clean with aloe soap not soap and water. WOC on case. IV to L) AC running NS at TKO. Follow up: Accuchecks AC&HS. Chemo precautions.
[2016-10-28 05:20] LABS: MPV 10.2 fl (9.4-12.4); RBC 1.92 M/uL (3.50-5.50); RDW-CV 16.8 % (11.9-14.6)
[2016-10-28 05:27] LABS: HEMOGLOBIN 6.6 g/dL (10.0-15.0); MCH 34.4 pg (27.0-34.0); MCHC 34.7 gm/dL (32.0-36.5); PLATELET COUNT 34 K/uL (150-450); WBC 1.8 K/uL (4.0-11.0)
[2016-10-28 05:46] LABS: ALBUMIN 2.3 gm/dL (3.5-5.0); ANION GAP 14.9 (10.0-19.0); CALCIUM 7.6 mg/dL (8.5-10.5); CREATININE 2.4 mg/dL (0.5-1.1); PHOSPHORUS 2.9 mg/dL (2.5-4.9); POTASSIUM 3.9 mMol/L (3.7-5.1)
[2016-10-28 06:15] LABS: ABSOLUTE NEUTROPHIL CT (ANC) 1.4 K/uL (1.8-7.8); BANDED NEUTROPHIL # 0.2 K/uL (0.0-0.1); BANDED NEUTROPHILS % 13 %; LYMPHOCYTE # 0.2 K/uL (0.8-4.0); LYMPHOCYTE % 12 %; MONOCYTE # 0.1 K/uL (0.0-1.0); SEGMENTED NEUTROPHIL # 1.1 K/uL (1.8-7.8); SEGMENTED NEUTROPHIL % 63 %
--- NOTE | 2016-10-28 09:37 | NUR ---
Significant Event: Patient alert and oriented x3, forgetful at times. Vital signs stable on room air. Up with 1-2 assist to bedside commode. Patient to get 1 unit of PRBC's. Hematest done, awaiting results. Patient has open sore on bottom, sensi- care applied. Turns q2hrs. Pleasant and cooperative with cares. Follow up:
--- NOTE | 2016-10-28 14:21 | NUR ---
Came past [facility]' room to visit with her but she had a lot of visitors in the room so I didn't come in and talk with her. I will stop back another day. Reviewed her chart, it appears that she is getting some PRBC today and that she is still not feeling the best. Will continue to follow and assist. Plan home.
--- NOTE | 2016-10-28 17:08 | NUR ---
Significant Event: Patient is alert/oriented x 3, forgetful. Denies N/T. Follows commands. Tremors present to all extremities. Pain to back and right leg this shift. Scheduled Percocet given. Dilaudid given x 1 at 1515. Room air. BM this shift. Pressure sore to sacrum. Amulates 1 Assist GB/walker. PIV to left AC running TKO at 25 ml/hr. Accuchecks ACHS. Patient received 1 unit of blood this shift. Chemo precautions. Follow up: Continue to monitor.
--- NOTE | 2016-10-28 23:39 | NUR ---
PATIENT TRANSFERRED TO PCU AT 2215, TO ARIEL BONNER. VSS. A/OX3. FORGETFUL. DENIES N/T. IN SINUS RHYTHM. LUNGS CLEAR AND DIMINISHED ON ROOM AIR. OPEN SORE TO SACRUM - SENSICARE APPLIED. IV TO LEFT AC WITH NS 25ML/HR AND INTERMITTENT ANTIBIOTICS. UP 1 ASSIST MAYURI ALEGRE. ACCUCHECK ACHS. CHEMO PRECAUTIONS.
--- NOTE | 2016-10-29 02:49 | NUR ---
Recieved transfer patient from ICU at 2230. Recieved report from Ysabel GEORGE. Upon PCU arrival, pt vitals 117/56, 72 HR, 95% on RA, 98.7 temp.
--- NOTE | 2016-10-29 03:54 | NUR ---
Significant Event: A/O x3. Confused, forgetful. Says "off the wall" statements but answers orientation questions correctly. Restless, emotional at times. Attempted to remove night monitor. Patient dc'd IV x2. VSS on RA. SBP 110-120s. HR 70-80s. LS clear/dim. 1+ lower leg edema. C/O rt hip pain. Gave dilaudid 2mg x1 and scheduled percocet. Dangled at bedside often. Coccyx open sore, no drainage. Frequent urination, small amounts each time. Up 1 assist with walker, gaitbelt. Blood pressures taken on left arm only. Follow up: Monitor neuro status.
[2016-10-29 04:50] LABS: HEMOGLOBIN 8.9 g/dL (10.0-15.0); MCV 95.5 fl (83.0-98.0); MPV 9.9 fl (9.4-12.4); RDW-CV 18.6 % (11.9-14.6); WBC 3.2 K/uL (4.0-11.0)
[2016-10-29 04:53] LABS: HEMATOCRIT 25.5 % (33.0-46.0); MCH 33.3 pg (27.0-34.0); MCHC 34.9 gm/dL (32.0-36.5); PLATELET COUNT 37 K/uL (150-450); RBC 2.67 M/uL (3.50-5.50)
[2016-10-29 05:12] LABS: ALBUMIN 2.6 gm/dL (3.5-5.0); CALCIUM 8.1 mg/dL (8.5-10.5); CREATININE 1.9 mg/dL (0.5-1.1); PHOSPHORUS 2.3 mg/dL (2.5-4.9)
[2016-10-29 05:26] LABS: ABSOLUTE NEUTROPHIL CT (ANC) 2.3 K/uL (1.8-7.8); BANDED NEUTROPHIL # 0.4 K/uL (0.0-0.1); BANDED NEUTROPHILS % 11 %; LYMPHOCYTE # 0.4 K/uL (0.8-4.0); LYMPHOCYTE % 13 %; MONOCYTE # 0.4 K/uL (0.0-1.0); SEGMENTED NEUTROPHIL % 61 %
--- NOTE | 2016-10-29 11:59 | NUR ---
Social visit with Xenia today left my name on her whiteboard. Let her know that I would continue to follow while she was here and help out with any dismissal needs. She denies any at this time. Her mom and daughter were in the room so I explained my role to them and let them know to contact me with any questions. CM to continue to follow and assist. Plan home.
--- NOTE | 2016-10-29 16:20 | NUR ---
Significant Event: Patient A/O but does make confused statements frequently. Follows commands. Frequently encouraging patient to reposition and keep off of sacral ulcer but patient often refuses although she does c/o pain to buttocks. Sensicare applied frequently today. Family at bedside off and on throughout the day. Nausea and small emesis today after eating some peaches, IV zofran given x1 with relief noted. AC/HS accuchecks. Bed and chair alarm, patient remains impulsive. Follow up:
--- NOTE | 2016-10-30 05:20 | NUR ---
Significant Event:Patient disoriented x3 at beginning of shift, reoriented well throughout the night. Still makes odd comments. Sister left and came back to stay with the patient which helped the nursing staff tramendously. Transfers 1 assist with walker/GB. Bed/Chair alarms at all times. PRN Haldol given x1. Dilaudid and 30mg MS contin given x1 each with scheduled percocet to maintain pain control. PIV to L)hand intact. Follow up:Continue with POC. ?MSU status.
--- NOTE | 2016-10-30 11:35 | NUR ---
Social visit with Hay[facility]' RN Mary. She says that Xenia is still pretty confused today and she is currently in working with [facility] RN right now. Mary reports that she is on Cipro BID x10 days so she will be here for a few days. Let Mary know that I had visited with Xenia and family twice and they are planning on her going home upon dismissal. CM to continue to follow and assist. Plan home.
--- NOTE | 2016-10-30 12:56 | NUR ---
A-NUTRITION F/U CONFUSED AT TIMES, PER RN REPORT, C/O N/V. OA TO COCCYX/BOTTOM CBW (STANDING SCALE): 75.4 KG; ADMIT WT (BED SCALE): 79.10 KG. LABS: NA 132, K+ 4.0, GLU 123, BUN 48, OSTOMY RN 1.9, ALB 2.6, CRP >37.50 MEDS: ZOLOFT, ZOFRAN, AND HALDOL DIET RX: REGULAR. PO INTAKE POOR; BITES-50%. GAEL BID. SPOKE W/PT TODAY AND SHE STATES HER APPETITE IS "NOT GREAT." SHE HAS HAD THE GAEL AND DOES NOT MIND IT. SHE STATES, "NO ENSURE, BOOST, OR ANYTHING LIKE THAT." DISCUSSED OTHER SUPPLEMENT OPTIONS W/PT; SHE WAS AGREEABLE TO TRYING MAGIC CUPS BID. D-AT NUTRITION RISK W/1)INADEQUATE ORAL INTAKE R/T ALTERED APPETITE AEB INTAKE RECORDS, PT REPORT AND 2)INCREASED NUTRIENT NEED R/T ALTERED SKIN INTEGRITY AND CATABOLIC DZ PROCESS AEB OA TO COCCYX AND DX. I-1)CONTINUE W/GAEL BID 2)MAGIC CUP BID M/E-GOAL: PO INTAKE PT TOLERATES 1)F/U PO INTAKE, SUPPLEMENT, SKIN, AND POC IN 3-5 DAYS 2)ASSIST NEEDED
--- NOTE | 2016-10-30 14:21 | NUR ---
Diabetes consult: Stopped by to visit with the patient this afternoon. She is currently down having and X-ray and nursing reports she has been confused. Blood sugars trends are controlled and ranging from 128-196.
--- NOTE | 2016-10-30 15:11 | NUR ---
Significant Event: A/O but does get confused to place and situation frequently. Poor appetite, encouraging PO intake, patient does not like ensure but likes boost. Encouraged family to bring some in for her. Up with 1 assist and a walker. Pain controlled well today, patient was less agitated today compared to yesterday. 2V CXR today results pending. Cipro changed to PO. Follow up: family plans to take patient home.
[2016-10-31 05:08] LABS: MCH 33.6 pg (27.0-34.0); MCHC 34.6 gm/dL (32.0-36.5); RBC 2.68 M/uL (3.50-5.50); RDW-CV 17.5 % (11.9-14.6); WBC 4.7 K/uL (4.0-11.0)
[2016-10-31 05:11] LABS: PLATELET COUNT 58 K/uL (150-450)
[2016-10-31 05:41] LABS: ALBUMIN 2.9 gm/dL (3.5-5.0); ANION GAP 12.1 (10.0-19.0); CREATININE 1.6 mg/dL (0.5-1.1); PHOSPHORUS 3.1 mg/dL (2.5-4.9); POTASSIUM 4.1 mMol/L (3.7-5.1)
[2016-10-31 05:47] LABS: ABSOLUTE NEUTROPHIL CT (ANC) 3.7 K/uL (1.8-7.8); BANDED NEUTROPHIL # 1.4 K/uL (0.0-0.1); BANDED NEUTROPHILS % 29 %; LYMPHOCYTE # 0.7 K/uL (0.8-4.0); LYMPHOCYTE % 14 %; MONOCYTE # 0.1 K/uL (0.0-1.0); SEGMENTED NEUTROPHIL # 2.3 K/uL (1.8-7.8); SEGMENTED NEUTROPHIL % 49 %
--- NOTE | 2016-10-31 07:20 | NUR ---
Significant Event: Patient alert and oriented x3. Forgetful at times. Can make odd statements at times. Complained of pain "everywhere" throughout shift. MS Contin, and Dilaudid given along with scheduled Percocet with relief to patient. ACHS accucheck. No coverage needed. Poor appetite continues. Encouraged oral intake. Up wtih 1 assist, walker, and gaitbelt. Good uop. Calm and cooperative with all cares. Follow up: Home today?
[2016-10-31] MEDS ORDERED: CIPRO500 MG PO (12:52)
[2016-10-31] MEDS ORDERED: ZOLOFT50 MG PO (12:57)
[2016-10-31] MEDS ORDERED: MACRODANTIN *IA50 MG PO (13:10)
--- NOTE | 2016-10-31 17:09 | NUR ---
Significant Event: ALERT & ORIENTED TO QUESTIONS, MAKES CONFUSED STATEMENTS AT TIMES. DOES NOT USE CALL LIGHT APPROPPRIATELY AND SETS ALARMS OFF. STEADY WITH WALKER. VSS, AFEBRILE, ROOM AIR. COMPLAINT OF GENERALIZED PAIN, PRN MEDS GIVEN WITH SOME RELIEF. DISCHARGE INSTRUCTIONS DISCUSSED, PT VERBALIZED UNDERSTANDING OF HOME REGIMEN. ENCOURAGED USE OF PILL SORTER BOX AND JOURNALING FOR TIMES TAKING PRN PAIN MEDICATION TO ENSURE PROPER DOSE TIMING. DC TO HOME AT 1330, ESCORTED TO VEHICLE WITH BELONGINGS, RELATIVE TO TRANSPORT
[2016-11-13] MEDS ORDERED: DECADRON4 MG PO (10:03)
[2016-11-13] MEDS ORDERED: COLACE100 MG PO (10:05)
[2016-11-13] MEDS ORDERED: VALIUM5 MG PO (10:05)
[2016-11-13] MEDS ORDERED: LEVEMIR100 UNIT/1 SUB-Q (10:06)
[2016-11-13] MEDS ORDERED: SENOKOT8.6 MG PO (10:07)
[2016-11-13] MEDS ORDERED: MIRALAX17 GM PO ×2 (10:07→10:14)
[2016-11-13] MEDS ORDERED: PROAIR HFA8.5 GM INH (10:14)
[2016-11-13] MEDS ORDERED: ADVIL200 MG PO (10:14)
[2016-11-13] MEDS ORDERED: XGEVA120 MG/1.7 SUB-Q (10:14)
== END 2016-10-31 13:29 | disposition disaster alternative care site (69) | DRG 871 ==
LOC: GMED 18:42 → GICU 21:20 → GPCU 10-28 22:27
PROVIDERS: Emergency Medicine; Family Medicine; Internal Medicine Hematology & Oncology; ADMIT Internal Medicine
PROC: 30243N1 Transfusion of Nonautologous Red Blood Cells into Central Vein, Percutaneous Approach (ICD-10-PCS; principal; 2016-10-28)
DX: A41.51 Sepsis due to Escherichia coli [E. coli] (principal); D61.810 Antineoplastic chemotherapy induced pancytopenia; D61.1 Drug-induced aplastic anemia; N17.9 Acute kidney failure, unspecified; C78.00 Secondary malignant neoplasm of unspecified lung; C79.51 Secondary malignant neoplasm of bone; C79.49 Secondary malignant neoplasm of other parts of nervous system; M41.9 Scoliosis, unspecified; N39.0 Urinary tract infection, site not specified; N10 Acute pyelonephritis; E87.1 Hypo-osmolality and hyponatremia; I10 Essential (primary) hypertension; E11.9 Type 2 diabetes mellitus without complications; F17.200 Nicotine dependence, unspecified, uncomplicated; E80.6 Other disorders of bilirubin metabolism; R65.20 Severe sepsis without septic shock; Z92.21 Personal history of antineoplastic chemotherapy; C50.912 Malignant neoplasm of unspecified site of left female breast; C50.911 Malignant neoplasm of unspecified site of right female breast; Z90.13 Acquired absence of bilateral breasts and nipples; Z92.3 Personal history of irradiation
CPT/HCPCS: J0744; J1170; J1200; J1644; J2185; J2270; J2405; J2543; J7030; J7040; J7050; J8521; P9040; Q0162

== ENCOUNTER → 2016-11-05 | Outpatient (CLI) | payer OTHER ==
[~2016-11-05] MED LIST changes: +ADVIL200 MG PO; +DECADRON4 MG PO; +LEVEMIR100 UNIT/1 SUB-Q; +MACRODANTIN *IA50 MG PO; +MIRALAX17 GM PO; +PROAIR HFA8.5 GM INH; +SENOKOT8.6 MG PO; +VALIUM5 MG PO; +XGEVA120 MG/1.7 SUB-Q; +ZOLOFT50 MG PO
== END | disposition disaster alternative care site (69) ==
LOC: GRAD 08:36
DX: C50.911 Malignant neoplasm of unspecified site of right female breast (principal); N64.4 Mastodynia; S32.009D Unspecified fracture of unspecified lumbar vertebra, subsequent encounter for fracture with routine healing; C79.51 Secondary malignant neoplasm of bone; N91.2 Amenorrhea, unspecified; L03.115 Cellulitis of right lower limb; K59.00 Constipation, unspecified; R60.0 Localized edema; K11.21 Acute sialoadenitis; D70.1 Agranulocytosis secondary to cancer chemotherapy; A41.50 Gram-negative sepsis, unspecified; N10 Acute pyelonephritis
CPT/HCPCS: J1642